=== PATIENT | female | born 1985 | race Two or more races ===

== ENCOUNTER 2024-10-25 20:34 | Emergency (ER) | payer MEDICAID, SELFPAY ==
[2024-10-25 20:53] VITALS: BP 137/89; PULSE 91; RESP 18; TEMP 37.1; O2SAT 97; BMI 31.4
--- NOTE | 2024-10-25 21:02 | EDNOTE_ITS ---
<Statement entered by Yuliya Garza MD - 10/26/24 22:04> As co-signing physician, I was present and available for consult prn. I concur with the plan and care as documented by the midlevel provider. ED Headache RME/HPI General Chief Complaint: Headache Stated Complaint: HEADACHE Time Seen by Provider: 10/25/24 20:58 Source: patient Arrival date/time: 10/25/24 20:34 39-year-old female with past medical history hypertension, diabetes, history of seizures presents emergency department complaining of headache that started 2 hours ago. Mode of arrival: ambulatory Limitations: no limitations Related Data Home Medications ?Medication ?Instructions ?Recorded ?Confirmed amoxicillin 500 mg capsule 500 mg PO Q8H 02/24/23 02/24/23 hydroxyzine HCl 50 mg tablet 50 mg PO HS 02/24/23 02/24/23 ibuprofen 800 mg tablet 800 mg PO Q8H PRN Pain 02/24/23 02/24/23 benazepril 20 mg tablet 20 mg PO QDAY 10/15/23 10/15/23 lisinopril 10 mg tablet 10 mg PO QDAY 10/15/23 10/15/23 levetiracetam 500 mg tablet 500 mg PO QDAY 05/09/24 05/09/24 (Keppra) semaglutide 1 mg/dose (4 mg/3 mL) mg subcut 06/12/24 subcutaneous pen injector (Ozempic) Previous Rx's ?Medication ?Instructions ?Recorded acetaminophen 500 mg capsule 1,000 mg (2 x 500 mg) PO Q6H PRN 06/05/23 fever or pain #30 caps ibuprofen 800 mg tablet 800 mg PO TID PRN pain #30 tabs 06/05/23 naproxen 500 mg tablet 500 mg PO BID PRN pain #30 tabs 08/12/23 ibuprofen 800 mg tablet 800 mg PO TID PRN pain #30 tabs 09/21/23 tamsulosin 0.4 mg capsule (Flomax) 0.4 mg PO QDAY #10 caps 09/21/23 ibuprofen 600 mg tablet 600 mg PO TID PRN pain #30 tabs 10/30/23 albuterol sulfate 90 mcg/actuation 2 puff inhalation Q6H PRN 03/10/24 aerosol inhaler (Ventolin HFA) shortness of breath or wheezing #8.5 grams amoxicillin 875 mg-potassium 1 tab PO BID #14 tabs 03/10/24 clavulanate 125 mg tablet levetiracetam 500 mg tablet 500 mg PO BID For seizure #60 tabs 05/09/24 (Keppra) calcium carbonate 1,000 1 tab PO QID PRN indigestion #20 06/23/24 mg-simethicone 60 mg chewable tabs tablet (Maalox Advanced) famotidine 20 mg tablet 20 mg PO BID #30 tabs 06/23/24 ondansetron 4 mg disintegrating 4 mg PO Q8H #14 tabs 06/23/24 tablet Allergies Allergy/AdvReac Type Severity Reaction Status Date / Time iron dextran complex Allergy Severe anaphylaxic Verified 08/01/24 18:31 iron Allergy THROAT Verified 08/01/24 18:31 SWELLING Review of Systems Review of Systems Systems Reviewed: All systems reviewed, normal except as documented Constitutional Constitutional: Reports system reviewed and no additional complaints, except as documented, Denies body ache(s), Denies chills, Denies fever(s) and Reports headache(s) Eyes Eyes: Reports system reviewed and no additional complaints, except as documented and Denies change in vision ENT Ears, Nose, Mouth, and Throat: Reports system reviewed and no additional complaints, except as documented, Denies disequilibrium, Denies dizziness, Reports headache(s), Denies sore throat and Denies vertigo Cardiovascular Cardiovascular: Reports system reviewed and no additional complaints, except as documented, Denies chest pain and Denies dyspnea Respiratory Respiratory: Reports system reviewed and no additional complaints, except as documented, Denies chest congestion, Denies cough and Denies dyspnea Gastrointestinal Gastrointestinal: Reports system reviewed and no additional complaints, except as documented, Denies abdominal pain, Denies nausea and Denies vomiting Musculoskeletal Musculoskeletal: Reports system reviewed and no additional complaints, except as documented, Denies abnormal gait and Denies arthralgias Integumentary/Breasts Skin/Breast: Reports system reviewed and no additional complaints, except as documented, Denies erythema, Denies rash and Denies wounds Neurologic Neurologic: Reports system reviewed and no additional complaints, except as documented, Denies abnormal gait, Denies disequilibrium, Denies dizziness, Reports headache(s) and Denies vertigo Past Medical History Past Medical History NEUROLOGIC: Positive Seizures; Negative Neurological Disorders CARDIAC: Positive Edema and Hypertension; Negative Cardiac Disorders or Congestive Heart Failure RESPIRATORY: Negative Chronic Obstructive Pulmonary Disease (COPD) or Asthma GASTROINTESTINAL: Negative Gastrointestinal Disorders GENITOURINARY: Negative Genitourinary Disorders or Renal Disease REPRODUCTIVE: Positive Previous Pregnancies MUSCULOSKELETAL: Negative Musculoskeletal Disorders or Fractures ENDOCRINE: Positive Diabetes Mellitus Type 2; Negative Diabetes Mellitus Type 1 HEMATOLOGIC: Positive Anemia PSYCHO/SOCIAL: Positive Depression OTHER HISTORY: Positive Hospitalization; Negative Autoimmune Disease, Blood Transfusions, Blood Transfusion Reaction or Anesthesia Reactions Family History FAMILY HISTORY: Negative Family Psychiatric Problems, Family Respiratory Disorders, Family Cardiac Disorders, Family Gastrointestinal Problems, Family Cancer, Family Surgery or Family Anesthesia Reaction Surgical History SURGICAL: Positive Section Social History SMOKING STATUS: Never smoker SECOND HAND EXPOSURE: No SUBSTANCE USE: does not use ED Exam General Limitations: Present no limitations General appearance: Present alert and in no apparent distress Head Head exam: Present atraumatic Eye Eye exam: Present normal appearance, PERRL and EOMI ENT ENT exam: Present normal exam, normal oropharynx and mucous membranes moist Neck Neck exam: Present normal inspection, full ROM and trachea midline Chest Chest inspection: Present normal inspection and symmetric chest wall rise Respiratory Respiratory exam: Present normal lung sounds bilaterally Cardiovascular Cardiovascular exam: Present regular rate, normal rhythm and normal heart sounds Abdominal Exam Abdominal exam: Present soft and normal bowel sounds Extremities Exam Extremities exam: Present normal inspection and full ROM Back Exam Back exam: Present normal inspection and full ROM Neurological Exam Neurological exam: Present alert, oriented X3 and CN II-XII intact Psychiatric Psychiatric exam: Present normal affect and normal mood Skin Skin exam: Present warm, dry, intact and normal color Course Quality Measures none Orders Category Date Time Status Acetaminophen Tab [Tylenol ES Tab] Med 10/25/24 21:02 Discontinued 1,000 mg PO X1 ONE DiphenhydrAMINE [Benadryl] Med 10/25/24 21:02 Discontinued 25 mg PO X1 ONE Metoclopramide Inj [Reglan Inj] Med 10/25/24 21:02 Discontinued 10 mg IM X1 ONE Vital Signs Vital signs: Vital Signs Temperature 98.8 F 10/25/24 20:53 Pulse Rate 91 10/25/24 20:53 Respiratory Rate 18 10/25/24 20:53 Blood Pressure 137/89 H 10/25/24 20:53 Pulse Oximetry (%) 97 10/25/24 20:53 Oxygen Delivery Method Room Air 10/25/24 20:53 Headache MDM Narrative MDM Narrative:: 39-year-old female with past medical history hypertension, diabetes, history of seizures presents emergency department complaining of headache that started 2 hours ago. Patient eloped before final disposition. Patient data External records reviewed:: [facility] previous records Clinical information provided by:: patient Social determinants that could affect healthcare access:: none Patient has the following chronic illnesses:: See chart How is presenting disease/condition affected by chronic disease/condition?: exacerbated by Evaluation data The following diagnostics were reviewed and interpreted by me:: radiology exam(s) Lab and/or radiology exams considered but not ordered:: Ordered Interpretation Summary: Interpreted by me Medications / Prescriptions Medications or Prescriptions considered but not ordered:: Ordered Medication administrations:: Medication Administration History Discontinued Medications Acetaminophen (Acetaminophen 500 Mg Tablet) 1,000 mg PO X1 ONE Stop: 10/25/24 21:03 Last Admin: 10/25/24 21:21 Dose: 1,000 mg Documented By: Diphenhydramine HCl (Diphenhydramine 25 Mg Capsule) 25 mg PO X1 ONE Stop: 10/25/24 21:03 Last Admin: 10/25/24 21:21 Dose: 25 mg Documented By: Metoclopramide HCl (Metoclopramide Inj 5 Mg/Ml Vial 2 Ml) 10 mg IM X1 ONE; Protocol Stop: 10/25/24 21:03 Last Admin: 10/25/24 21:21 Dose: 10 mg Documented By: Given Consultations Consultation(s) initiated? (list below): No Diagnosis Differential diagnosis headache: migraine, tension headache, subarachnoid hemorrhage, headache, meningitis, sinusitis and postconcussion syndrome Most likely diagnosis given after review of the tests above:: Eloped before final disposition Admission Indicated Admission indicated?: not indicated Admission Request Was there a request for admission?: No Disposition Plan Disposition Plan: Discharge Discharge Attestation Discharge Attestation: The patient and all family members were given an opportunity to ask questions and understood the discharge instructions. Discharge instructions specifically effects, indications for sooner follow up or return to the emergency department, and the expected course of current diagnosis. Patient condition: Stable Discharge Plan Plan Patient Disposition: Elopement Prescriptions/Referrals Prescriptions/Med Rec: No Action amoxicillin 500 mg Capsule 500 mg PO Q8H ibuprofen 800 mg Tablet 800 mg PO Q8H PRN (Reason: Pain) hydroxyzine HCl 50 mg Tablet 50 mg PO HS ibuprofen 800 mg tablet 800 mg PO TID PRN (Reason: pain) Qty: 30 0RF acetaminophen 500 mg capsule 1,000 mg PO Q6H PRN (Reason: fever or pain) Qty: 30 0RF levetiracetam [Keppra] 500 mg tablet 500 mg PO QDAY levetiracetam [Keppra] 500 mg tablet 500 mg PO BID Qty: 60 0RF Ozempic 1 mg/dose (4 mg/3 mL) pen injector SUBCUT Patient Comments: INJECT 1MG SUBCUTANEOUS ONCE A WEEK FOR 4 WEEKS famotidine 20 mg tablet 20 mg PO BID Qty: 30 1RF ondansetron 4 mg tablet,disintegrating 4 mg PO Q8H Qty: 14 0RF Maalox Advanced 1,000-60 mg tablet,chewable 1 tab PO QID PRN (Reason: indigestion) Qty: 20 0RF naproxen 500 mg tablet 500 mg PO BID PRN (Reason: pain) Qty: 30 0RF tamsulosin [Flomax] 0.4 mg capsule 0.4 mg PO QDAY Qty: 10 0RF ibuprofen 800 mg tablet 800 mg PO TID PRN (Reason: pain) Qty: 30 0RF lisinopril 10 mg Tablet 10 mg PO QDAY benazepril 20 mg Tablet 20 mg PO QDAY ibuprofen 600 mg tablet 600 mg PO TID PRN (Reason: pain) Qty: 30 0RF albuterol sulfate [Ventolin HFA] 90 mcg/actuation HFA aerosol inhaler 2 puff inhalation Q6H PRN (Reason: shortness of breath or wheezing) Qty: 8.5 0RF amoxicillin-pot clavulanate 875-125 mg tablet 1 tab PO BID Qty: 14 0RF Referrals: Aileen Bhakta PA-C [Primary Care Provider] - In 1 week Problem List Clinical Impression: Eloped from emergency department Patient/Caregiver Discharge Instructions Print Language: Gabonese NEAL/JAYSON Supervising Physician NEAL/COMPUTER GAME [employer] Supervising Physician: Dr. Garza
[2024-10-25] MEDS: DiphenhydrAMINE 25 MG CAPSULE PO (21:21)
[2024-10-25] MEDS: METOCLOPRAMIDE INJ 5 MG/ML VIAL 2 ML 10 MG IM (21:21)
[2024-10-25] MEDS: ACETAMINOPHEN 500 MG TABLET 1000 MG PO (21:21)
--- NOTE | 2024-10-25 22:30 | PC.NURSE ---
NO ANSWER AT ER LOBBY OR OUTSIDE ER.
--- NOTE | 2024-10-25 22:53 | PC.NURSE ---
NO ANSWER AT ER LOBBY OR OUTSIDE ER TO DO CT.
--- NOTE | 2024-10-25 23:03 | PC.NURSE ---
NO ANSWER AT ER LOBBY OR OUTSIDE ER.
== END 2024-10-25 23:06 | disposition left against medical advice (07) ==
PROVIDERS: Emergency Provider Emergency Medicine; PCP Specialist
DX: R51.9 Headache, unspecified (principal); Z53.29 Procedure and treatment not carried out because of patient's decision for other reasons
CPT/HCPCS: 99281; J2765; A9270

== ENCOUNTER 2024-12-21 18:00 | Emergency (ER) | payer MEDICAID, SELFPAY ==
--- NOTE | 2024-12-21 18:22 | PD.EDRME ---
Rapid Medical Screening Exam RME Arrival date/time: 12/21/24 18:00 39-year-old female with past medical history of seizure disorder and diabetes presents emergency department complaining of headache and reports I feel like going to have a seizure. Chief Complaint: Headache Time Seen by Provider: 12/21/24 18:04 Vital signs reviewed by provider: Yes
--- NOTE | 2024-12-21 18:24 | XR_ITS ---
Examination: CT brain head without contrast. 2-D sagittal coronal reconstructions Date and time of exam:June 20, 2025 1854 hours Comparison May 25, 2024 INDICATIONS: Onset right-sided head pain and blurred vision today CTDI: vol (mGy):46.3 DLP: (mGycm):864 Technique: Multiple CT axial sections of the brain have been obtained, 5 mm slice thickness. Contrast has not been administered. 2-D sagittal, coronal reconstructions have been obtained Low dose protocols were performed. One or more of the following dose reduction techniques were used; automated exposure control, adjustment of the mA and/or KV according to patient size, use of iterative reconstruction technique. Findings: No significant ventricular enlargement. Intra-axial or extra-axial hemorrhage density is not seen. No mass effect or midline shift Basal cisterns are not remarkable. Fourth ventricle is midline. Cranial vault intact. Impression: Negative for acute hemorrhage, mass effect or midline shift. Advise clinical correlation and follow-up accordingly
[2024-12-21 18:25] VITALS: BP 163/99; PULSE 96; RESP 20; TEMP 36.8; O2SAT 100
[2024-12-21] MEDS: LORazepam 2 MG/ML VIAL 1 MG IM (18:49)
[2024-12-21] MEDS: ACETAMINOPHEN 500 MG TABLET 1000 MG PO (18:49)
[2024-12-21 19:08] LABS: Basophils # (Auto) 0.1 Thou/mm3 (0.0-0.2); Basophils % (Auto) 1 % (0-2.5); Eosinophils # (Auto) 0.3 Thou/mm3 (0.0-0.5); Eosinophils % (Auto) 3 % (0-10); Hemoglobin 13.6 g/dL (12.0-16.0); Immature Granulocytes % (Auto) 0 % (0-0); Immature Granulocytes Auto 0.02 Thou/mm3 (0.00-0.00); Lymphocytes # (Auto) 2.6 Thou/mm3 (1.0-4.8); Lymphocytes % (Auto) 35 % (10-50); Mean Corpuscular HGB Conc 33.2 g/dl (31.0-37.0); Mean Corpuscular Hemoglobin 25.4 pg (25.0-35.0); Mean Corpuscular Volume 77 fL (80-100); Monocytes # (Auto) 0.5 Thou/mm3 (0.0-0.8); Monocytes % (Auto) 6 % (0-12); Neutrophils # (Auto) 3.9 Thou/mm3 (1.8-7.7); Neutrophils % (Auto) 54 % (37-80); Nucleated Red Blood Cell % 0 /100 WBC (0); Platelet Count 222 Thou/mm3 (140-440); RDW Standard Deviation 37.1 fL (36.4-46.3); Red Blood Count 5.36 Miln/mm3 (4.00-5.20); White Blood Count 7.3 Thou/mm3 (3.6-11.0)
[2024-12-21 19:23] LABS: HCG,Qualitative Serum Negative
[2024-12-21 19:25] LABS: Alanine Aminotransferase 21 U/L (10-49); Albumin, Serum 4.7 gm/dL (3.5-5.0); Albumin/Globulin Ratio 1.5 (1.2-2.2); Alkaline Phosphatase 91 U/L (46-116); Anion Gap 7 (7-16); Aspartate Amino Transferase 19 U/L (0-34); BUN/Creatinine Ratio 21 Ratio (12-20); Bilirubin,Total 0.3 mg/dL (0.3-1.2); Blood Urea Nitrogen 15 mg/dL (9-23); Calcium 9.9 mg/dL (8.3-10.6); Calcium (Corrected) 9.9 mg/dL (8.5-10.1); Carbon Dioxide 26.9 mMol/L (20.0-31.0); Chloride 102 mMol/L (98-107); Creatinine (Component) 0.7 mg/dL (0.6-1.3); Globulin 3.2 gm/dL (2.3-3.5); Glucose 175 mg/dL (74-106); Osmolality,Calculated 276 (275-295); Potassium 3.5 mMol/L (3.4-5.1); Sodium 136 mMol/L (136-145); Total Protein 7.9 gm/dL (5.7-8.2); eGFR > 60 See Note
[2024-12-21 20:02] LABS: Bacteria,Urine Rare; Bilirubin,Urine Negative (Negative); Blood,Urine 2+ (Negative); Budding Yeast,Urine Present; Collection Type, Urine Clean Catch; Color,Urine Lt-Yellow (Lt Yel-Yel); Glucose, Urine 4+ (Negative); Ketones,Urine Negative (Negative); Leukocyte Esterase,Urine Positive (Negative); Nitrite,Urine Negative (Negative); PH,Urine 6.5 (5.0-7.0); Protein,Urine Trace (Neg - Trace); RBC,Urine 14 /hpf (0-3); Squamous Epithelial Cell,Urine 10 /hpf (0-5); Urobilinogen,Urine Negative mg/dL (0.0-1.0); WBC,Urine 82 /hpf (0-5)
[2024-12-21 20:17] LABS: Clarity,Urine Hazy (Clear/Hazy); Culture Indicated,Urine Yes; Sperm,Urine Present
[2024-12-21 20:48] LABS: Amphetamine/Methamp Scrn,U Negative (Negative); Barbiturate Screen,Urine Negative (Negative); Benzodiazepines Screen,Urine Negative (Negative); Benzoylecgonine Screen, Ur Negative (Negative); Fentanyl Screen,Urine Negative (Negative); Opiate Screen,Urine Negative (Negative); THC Screen,Urine Negative (Negative)
--- NOTE | 2024-12-21 20:52 | PD.EDHA ---
ED Headache RME/HPI General Chief Complaint: Headache Stated Complaint: HEADACHE Time Seen by Provider: 12/21/24 18:04 Source: patient Arrival date/time: 12/21/24 18:00 39-year-old female with past medical history of seizure disorder and diabetes presents emergency department complaining of headache and reports I feel like going to have a seizure. Patient reports has been compliant with her medication. Patient reports takes Keppra. Patient reports also suffers with anxiety and has had similar symptoms before. Patient denies any fever, chills, cough, vomiting, or any other associated symptom. Mode of arrival: ambulatory Limitations: no limitations RME / HPI RME / HPI Narrative: 12/21/24 18:00 39-year-old female with past medical history of seizure disorder and diabetes presents emergency department complaining of headache and reports I feel like going to have a seizure. Related Data Home Medications ?Medication ?Instructions ?Recorded ?Confirmed amoxicillin 500 mg capsule 500 mg PO Q8H 02/24/23 02/24/23 hydroxyzine HCl 50 mg tablet 50 mg PO HS 02/24/23 02/24/23 ibuprofen 800 mg tablet 800 mg PO Q8H PRN Pain 02/24/23 02/24/23 benazepril 20 mg tablet 20 mg PO QDAY 10/15/23 10/15/23 lisinopril 10 mg tablet 10 mg PO QDAY 10/15/23 10/15/23 levetiracetam 500 mg tablet 500 mg PO QDAY 05/09/24 05/09/24 (Keppra) semaglutide 1 mg/dose (4 mg/3 mL) mg subcut 06/12/24 subcutaneous pen injector (Ozempic) Previous Rx's ?Medication ?Instructions ?Recorded acetaminophen 500 mg capsule 1,000 mg (2 x 500 mg) PO Q6H PRN 06/05/23 fever or pain #30 caps ibuprofen 800 mg tablet 800 mg PO TID PRN pain #30 tabs 06/05/23 naproxen 500 mg tablet 500 mg PO BID PRN pain #30 tabs 08/12/23 ibuprofen 800 mg tablet 800 mg PO TID PRN pain #30 tabs 09/21/23 tamsulosin 0.4 mg capsule (Flomax) 0.4 mg PO QDAY #10 caps 09/21/23 ibuprofen 600 mg tablet 600 mg PO TID PRN pain #30 tabs 10/30/23 albuterol sulfate 90 mcg/actuation 2 puff inhalation Q6H PRN 03/10/24 aerosol inhaler (Ventolin HFA) shortness of breath or wheezing #8.5 grams amoxicillin 875 mg-potassium 1 tab PO BID #14 tabs 03/10/24 clavulanate 125 mg tablet levetiracetam 500 mg tablet 500 mg PO BID For seizure #60 tabs 05/09/24 (Keppra) calcium carbonate 1,000 1 tab PO QID PRN indigestion #20 06/23/24 mg-simethicone 60 mg chewable tabs tablet (Maalox Advanced) famotidine 20 mg tablet 20 mg PO BID #30 tabs 06/23/24 ondansetron 4 mg disintegrating 4 mg PO Q8H #14 tabs 06/23/24 tablet acetaminophen 500 mg capsule 500 mg PO Q6H PRN pain #30 caps 12/21/24 cephalexin 500 mg capsule 500 mg PO BID 5 days #10 caps 12/21/24 Allergies Allergy/AdvReac Type Severity Reaction Status Date / Time iron dextran complex Allergy Severe anaphylaxic Verified 08/01/24 18:31 iron Allergy THROAT Verified 08/01/24 18:31 SWELLING Review of Systems Review of Systems Systems Reviewed: All systems reviewed, normal except as documented Constitutional Constitutional: Reports system reviewed and no additional complaints, except as documented, Denies body ache(s), Denies chills, Denies fever(s) and Reports headache(s) Eyes Eyes: Reports system reviewed and no additional complaints, except as documented and Denies change in vision ENT Ears, Nose, Mouth, and Throat: Reports system reviewed and no additional complaints, except as documented, Denies disequilibrium, Denies dizziness, Reports headache(s), Denies sore throat and Denies vertigo Cardiovascular Cardiovascular: Reports system reviewed and no additional complaints, except as documented, Denies chest pain and Denies dyspnea Respiratory Respiratory: Reports system reviewed and no additional complaints, except as documented, Denies chest congestion, Denies cough and Denies dyspnea Gastrointestinal Gastrointestinal: Reports system reviewed and no additional complaints, except as documented, Denies abdominal pain, Denies nausea and Denies vomiting Musculoskeletal Musculoskeletal: Reports system reviewed and no additional complaints, except as documented, Denies abnormal gait and Denies arthralgias Integumentary/Breasts Skin/Breast: Reports system reviewed and no additional complaints, except as documented, Denies erythema, Denies rash and Denies wounds Neurologic Neurologic: Reports system reviewed and no additional complaints, except as documented, Denies abnormal gait, Denies disequilibrium, Denies dizziness, Reports headache(s) and Denies vertigo Past Medical History Past Medical History NEUROLOGIC: Positive Seizures; Negative Neurological Disorders CARDIAC: Positive Edema and Hypertension; Negative Cardiac Disorders or Congestive Heart Failure RESPIRATORY: Negative Chronic Obstructive Pulmonary Disease (COPD) or Asthma GASTROINTESTINAL: Negative Gastrointestinal Disorders GENITOURINARY: Negative Genitourinary Disorders or Renal Disease REPRODUCTIVE: Positive Previous Pregnancies MUSCULOSKELETAL: Negative Musculoskeletal Disorders or Fractures ENDOCRINE: Positive Diabetes Mellitus Type 2; Negative Diabetes Mellitus Type 1 HEMATOLOGIC: Positive Anemia PSYCHO/SOCIAL: Positive Depression OTHER HISTORY: Positive Hospitalization; Negative Autoimmune Disease, Blood Transfusions, Blood Transfusion Reaction or Anesthesia Reactions Family History FAMILY HISTORY: Negative Family Psychiatric Problems, Family Respiratory Disorders, Family Cardiac Disorders, Family Gastrointestinal Problems, Family Cancer, Family Surgery or Family Anesthesia Reaction Surgical History SURGICAL: Positive Section Social History SMOKING STATUS: Never smoker SECOND HAND EXPOSURE: No SUBSTANCE USE: does not use ED Exam General Limitations: Present no limitations General appearance: Present alert and in no apparent distress Head Head exam: Present atraumatic Eye Eye exam: Present normal appearance, PERRL and EOMI ENT ENT exam: Present normal exam, normal oropharynx and mucous membranes moist Neck Neck exam: Present normal inspection, full ROM and trachea midline Chest Chest inspection: Present normal inspection and symmetric chest wall rise Respiratory Respiratory exam: Present normal lung sounds bilaterally Cardiovascular Cardiovascular exam: Present regular rate, normal rhythm and normal heart sounds Abdominal Exam Abdominal exam: Present soft and normal bowel sounds Extremities Exam Extremities exam: Present normal inspection and full ROM Back Exam Back exam: Present normal inspection and full ROM Neurological Exam Neurological exam: Present alert, oriented X3 and CN II-XII intact Psychiatric Psychiatric exam: Present normal affect and normal mood Skin Skin exam: Present warm, dry, intact and normal color Course Quality Measures none Orders Category Date Time Status EKG (ED ONLY) *Do not use* NOW Care 12/21/24 18:[address] head/brain wo con Stat Exams 12/21/24 18:24 Completed EKG (ED Only) Stat Exams 12/21/24 18:24 Ordered CBC Stat Lab 12/21/24 18:41 Completed CMP [Comprehensive Metabolic Panel] Stat Lab 12/21/24 18:41 Completed Drug Screen,Urine Stat Lab 12/21/24 19:10 Completed HCG,Qualitative Serum Stat Lab 12/21/24 18:41 Completed Urinalysis, C/S if Indicated Stat Lab 12/21/24 19:10 Completed Urine Culture Stat Lab 12/21/24 19:10 Received Acetaminophen Tab [Tylenol ES Tab] Med 12/21/24 18:27 Discontinued 1,000 mg PO X1 ONE Fluconazole [Diflucan] Med 12/21/24 20:55 Discontinued 150 mg PO X1 ONE LORazepam [Ativan Inj] Med 12/21/24 18:25 Discontinued 1 mg IM X1 ONE Vital Signs Vital signs: Vital Signs Temperature 98.2 F 12/21/24 18: Pulse Rate 96 12/21/24 18:25 Respiratory Rate 20 12/21/24 18:25 Blood Pressure 163/99 H 12/21/24 18:25 Pulse Oximetry (%) 100 12/21/24 18:25 Oxygen Delivery Method Room Air 12/21/24 18:25 100% room air within normal limits Procedures -ED EKG Interpretation #1: Date of EK12/21/24 Time of EK:35 Rate: 98 Interpretation: Interpreted by me EKG Impression: Normal sinus rhythm, No acute ST-T changes, No ectopy, No ischemic changes and Normal QRS Headache MDM Narrative MDM Narrative:: 39-year-old female with past medical history of seizure disorder and diabetes presents emergency department complaining of headache and reports I feel like going to have a seizure. Patient reports has been compliant with her medication. Patient reports takes Keppra. Patient reports also suffers with anxiety and has had similar symptoms before. Patient denies any fever, chills, cough, vomiting, or any other associated symptom. CBC unremarkable for any leukocytosis. CMP was also unremarkable for any elevated LFTs or gross electrolyte abnormalities. EKG sinus rhythm. CT head unremarkable. Urinalysis positive for leukocytes, WBCs, and RBCs we will treat UTI and also given x 1 dose of fluconazole for yeast in urine. Patient was given 1 mg Ativan IM and Tylenol which significantly improved her symptoms. Patient GCS of 15 with steady gait and answering questions appropriately. Patient likely suffering from anxiety attack. Instructed to continue taking her antiseizure medication and have a close follow-up with her primary care provider and return to emergency department for any worsening symptoms or as needed. Patient data External records reviewed:: [facility] previous records Clinical information provided by:: patient and family Social determinants that could affect healthcare access:: none Patient has the following chronic illnesses:: See chart How is presenting disease/condition affected by chronic disease/condition?: exacerbated by Evaluation data The following diagnostics were reviewed and interpreted by me:: lab results, radiology exam(s) and EKG tracing(s) Lab and/or radiology exams considered but not ordered:: Order Interpretation Summary: Interpreted by me Medications / Prescriptions Medications or Prescriptions considered but not ordered:: Ordered Medication administrations:: Medication Administration History Discontinued Medications Acetaminophen (Acetaminophen 500 Mg Tablet) 1,000 mg PO X1 ONE Stop: 12/21/24 18:28 Last Admin: 12/21/24 18:49 Dose: 1,000 mg Documented By: MICHAEL Fluconazole (Fluconazole 150 Mg Tablet) 150 mg PO X1 ONE Stop: 12/21/24 20:56 Last Admin: 12/21/24 21:08 Dose: 150 mg Documented By: MICHAEL Lorazepam (Lorazepam 2 Mg/Ml Vial) 1 mg IM X1 ONE Stop: 12/21/24 18:26 Last Admin: 12/21/24 18:49 Dose: 1 mg Documented By: MICHAEL Given Consultations Consultation(s) initiated? (list below): No Diagnosis Differential diagnosis headache: migraine, tension headache, subarachnoid hemorrhage, headache, meningitis, sinusitis and postconcussion syndrome Most likely diagnosis given after review of the tests above:: UTI Admission Indicated Admission indicated?: not indicated Admission Request Was there a request for admission?: No Disposition Plan Disposition Plan: Discharge Discharge Attestation Discharge Attestation: The patient and all family members were given an opportunity to ask questions and understood the discharge instructions. Discharge instructions specifically effects, indications for sooner follow up or return to the emergency department, and the expected course of current diagnosis. Patient condition: Stable Discharge Plan Plan Patient Disposition: HOME (Self Care) Disposition Comment: Stable Prescriptions/Referrals Prescriptions/Med Rec: New acetaminophen 500 mg capsule 500 mg PO Q6H PRN (Reason: pain) Qty: 30 0RF cephalexin 500 mg capsule 500 mg PO BID 5 Days Qty: 10 0RF No Action amoxicillin 500 mg Capsule 500 mg PO Q8H ibuprofen 800 mg Tablet 800 mg PO Q8H PRN (Reason: Pain) hydroxyzine HCl 50 mg Tablet 50 mg PO HS ibuprofen 800 mg tablet 800 mg PO TID PRN (Reason: pain) Qty: 30 0RF acetaminophen 500 mg capsule 1,000 mg PO Q6H PRN (Reason: fever or pain) Qty: 30 0RF levetiracetam [Keppra] 500 mg tablet 500 mg PO QDAY levetiracetam [Keppra] 500 mg tablet 500 mg PO BID Qty: 60 0RF Ozempic 1 mg/dose (4 mg/3 mL) pen injector SUBCUT Patient Comments: INJECT 1MG SUBCUTANEOUS ONCE A WEEK FOR 4 WEEKS famotidine 20 mg tablet 20 mg PO BID Qty: 30 1RF ondansetron 4 mg tablet,disintegrating 4 mg PO Q8H Qty: 14 0RF Maalox Advanced 1,000-60 mg tablet,chewable 1 tab PO QID PRN (Reason: indigestion) Qty: 20 0RF naproxen 500 mg tablet 500 mg PO BID PRN (Reason: pain) Qty: 30 0RF tamsulosin [Flomax] 0.4 mg capsule 0.4 mg PO QDAY Qty: 10 0RF ibuprofen 800 mg tablet 800 mg PO TID PRN (Reason: pain) Qty: 30 0RF lisinopril 10 mg Tablet 10 mg PO QDAY benazepril 20 mg Tablet 20 mg PO QDAY ibuprofen 600 mg tablet 600 mg PO TID PRN (Reason: pain) Qty: 30 0RF albuterol sulfate [Ventolin HFA] 90 mcg/actuation HFA aerosol inhaler 2 puff inhalation Q6H PRN (Reason: shortness of breath or wheezing) Qty: 8.5 0RF amoxicillin-pot clavulanate 875-125 mg tablet 1 tab PO BID Qty: 14 0RF Referrals: Aileen Bhakta PA-C [Primary Care Provider] - In 1 week Problem List Clinical Impression: UTI (urinary tract infection) Patient/Caregiver Discharge Instructions Discharge Activity: activity as tolerated Education Materials: ED CYSTITIS Female Adult Additional Instructions: Drink plenty of fluids and complaining of rest. Take antibiotic as prescribed. Follow-up with primary care provider in 2 to 3 days. Continue take your seizure medication as prescribed. Return to emergency department for any worsening symptoms or as needed. Print Language: Chilean Stand Alone Forms: Kristine Award Info., Patient Portal Info Letter PA/PAINT SPRAYING MACHINE OPERATOR HELPER Supervising Physician PA/PAINT SPRAYING MACHINE OPERATOR HELPER Supervising Physician: Dr. Palacios
[2024-12-21] MEDS: FLUCONAZOLE 150 MG TABLET PO (21:08)
== END 2024-12-21 21:11 | disposition home or self-care (01) ==
PROVIDERS: Emergency Provider Emergency Medicine; PCP Specialist
DX: N39.0 Urinary tract infection, site not specified (principal); R51.9 Headache, unspecified; H53.8 Other visual disturbances
CPT/HCPCS: 36415; 70450; 80053; 80307; 81001; 84703; 85025; 87086; 96372; 99284; J2060; A9270

== ENCOUNTER 2025-01-19 16:27 | Emergency (ER) | payer MEDICAID, SELFPAY ==
[2025-01-19 16:28] VITALS: BMI 28.1
[2025-01-19 16:49] VITALS: BP 134/85; PULSE 111; RESP 18; TEMP 37.2; O2SAT 96; BMI 29.7
--- NOTE | 2025-01-19 16:56 | EKG_ITS ---
[facility] Test Date: 2025-01-19 Pat Name: HOMA HENRY Department: Room: - Gender: Female Supervisor Body Assembly: : 1985 Requested By: Jan Cantor Order Number: [id number] Reading MD: Jan Cantor Measurements Intervals [place] Rate: 96 P: 44 WA: 139 QRS: 65 QRSD: 83 T: 55 QT: 299 QTc: 379 Interpretive Statements SINUS RHYTHM Compared to ECG 05/25/2024 01:41:12 Sinus tachycardia no longer present /store/S0/[id number]
--- NOTE | 2025-01-19 16:56 | XR_ITS ---
Examination: PA lateral chest 2 views Technique: Upright PA lateral chest 2 views Exam date and time: January 19, 2025 1727 hrs. Indications: Chest pain coughing today Findings: Normal heart size. Lungs are clear. The osseous structures are intact Impression: No active disease
--- NOTE | 2025-01-19 17:00 | PD.EDURI ---
Upper Respiratory Inf. RME/HPI General Chief Complaint: Flu Like Symptoms Stated Complaint: Cough, fever, PAUL, CP Time Seen by Provider: 01/19/25 16:55 Arrival date/time: 01/19/25 16:27 RME / HPI RME / HPI Narrative: 39-year-old female presents with complaint of cough, headache, chest pain, and subjective fevers at home. Patient reports family members at home with similar symptoms. States she has been taking Tylenol at home and also an antibiotic that was prescribed by her PCP. Related Data Home Medications ?Medication ?Instructions ?Recorded ?Confirmed amoxicillin 500 mg capsule 500 mg PO Q8H 02/24/23 02/24/23 hydroxyzine HCl 50 mg tablet 50 mg PO HS 02/24/23 02/24/23 ibuprofen 800 mg tablet 800 mg PO Q8H PRN Pain 02/24/23 02/24/23 benazepril 20 mg tablet 20 mg PO QDAY 10/15/23 10/15/23 lisinopril 10 mg tablet 10 mg PO QDAY 10/15/23 10/15/23 levetiracetam 500 mg tablet 500 mg PO QDAY 05/09/24 05/09/24 (Keppra) semaglutide 1 mg/dose (4 mg/3 mL) mg subcut 06/12/24 subcutaneous pen injector (Ozempic) Previous Rx's ?Medication ?Instructions ?Recorded acetaminophen 500 mg capsule 1,000 mg (2 x 500 mg) PO Q6H PRN 06/05/23 fever or pain #30 caps ibuprofen 800 mg tablet 800 mg PO TID PRN pain #30 tabs 06/05/23 naproxen 500 mg tablet 500 mg PO BID PRN pain #30 tabs 08/12/23 ibuprofen 800 mg tablet 800 mg PO TID PRN pain #30 tabs 09/21/23 tamsulosin 0.4 mg capsule (Flomax) 0.4 mg PO QDAY #10 caps 09/21/23 ibuprofen 600 mg tablet 600 mg PO TID PRN pain #30 tabs 10/30/23 albuterol sulfate 90 mcg/actuation 2 puff inhalation Q6H PRN 03/10/24 aerosol inhaler (Ventolin HFA) shortness of breath or wheezing #8.5 grams amoxicillin 875 mg-potassium 1 tab PO BID #14 tabs 03/10/24 clavulanate 125 mg tablet levetiracetam 500 mg tablet 500 mg PO BID For seizure #60 tabs 05/09/24 (Keppra) calcium carbonate 1,000 1 tab PO QID PRN indigestion #20 06/23/24 mg-simethicone 60 mg chewable tabs tablet (Maalox Advanced) famotidine 20 mg tablet 20 mg PO BID #30 tabs 06/23/24 ondansetron 4 mg disintegrating 4 mg PO Q8H #14 tabs 06/23/24 tablet acetaminophen 500 mg capsule 500 mg PO Q6H PRN pain #30 caps 12/21/24 ibuprofen 600 mg tablet 600 mg PO TID PRN pain #30 tabs 01/19/25 Allergies Allergy/AdvReac Type Severity Reaction Status Date / Time iron dextran complex Allergy Severe anaphylaxic Verified 08/01/24 18:31 iron Allergy THROAT Verified 08/01/24 18:31 SWELLING Review of Systems Review of Systems Systems Reviewed: All systems reviewed, normal except as documented ED Exam Narrative Physical exam: Constitutional: no acute distress, age appropriate, non-toxic Eyes: PERRL, conjunctivae w/o pallor, EOMI HENT: normocephalic, atraumatic. Oral mucosa moist Respiratory Effort: no stridor, effort normal, no retractions Breath sounds: Clear bilaterally; No rales, No rhonchi, No wheezing Cardiovascular: regular rhythm, S1 and S2 normal, no murmur Abdominal: soft; non-distended, non-tender Musculoskeletal: no deformities, no swelling, no LE edema Skin: warm, dry; No rash Neurology: alert, oriented X 4. Normal gait. Moves all extremities spontaneously. Psychology: cooperative, normal mood Course Quality Measures none Orders Category Date Time Status Bedside Influenza A&B Antigen Test NOW Care 01/19/25 16:57 Completed EKG (ED ONLY) *Do not use* NOW Care 01/19/25 16:56 Completed EKG (ED Only) Stat Exams 01/19/25 16:56 Draft XR chest 2V Stat Exams 01/19/25 16:56 Taken CBC Stat Lab 01/19/25 17:14 Completed CMP [Comprehensive Metabolic Panel] Stat Lab 01/19/25 17:14 Results HCG,Qualitative Serum Stat Lab 01/19/25 17:14 Results Troponin I Stat Lab 01/19/25 17:14 Results Ketorolac Inj [Toradol Inj] Med 01/19/25 16:56 Discontinued 30 mg IM X1 ONE Vital Signs Vital signs: Vital Signs Temperature 99.0 F 01/19/25 16:49 Pulse Rate 111 H 01/19/25 16:49 Respiratory Rate 18 01/19/25 16:49 Blood Pressure 134/85 H 01/19/25 16:49 Pulse Oximetry (%) 96 01/19/25 16:49 Oxygen Delivery Method Room Air 01/19/25 16:49 Upper Respiratory Infection MDM Narrative MDM Narrative:: 39-year-old female presents with flulike symptoms and chest pain. Differential diagnoses include influenza, pneumonia, costochondritis, ACS, PE EKG without any ischemic changes and troponin within normal limits. Highly doubt ACS. Considered PE, but no shortness of breath or dyspnea on exertion, no hemoptysis, no recent travel or immobilization, no unilateral leg swelling. Likely costochondritis secondary to viral URI. Chest x-ray shows no evidence of pneumonia. Counseled to follow-up with primary care in 2 to 3 days. Strict return to ED precautions given. Patient data External records reviewed:: [facility] previous records Clinical information provided by:: patient Social determinants that could affect healthcare access:: none Patient has the following chronic illnesses:: None How is presenting disease/condition affected by chronic disease/condition?: no chronic disease Evaluation data The following diagnostics were reviewed and interpreted by me:: lab results, radiology exam(s) and EKG tracing(s) Lab and/or radiology exams considered but not ordered:: Considered CT angio, but not indicated, see MDM for details Interpretation Summary: EKG medically necessary in the evaluation of chest pain and interpreted by me and ED physician at the time of patient evaluation. Normal sinus rhythm with a rate of 96. RI and QT intervals within normal limits. No ST/T changes. No STEMI. Interpretation: Normal EKG Chest x-ray: No infiltrate, effusion, or pneumothorax. My independent interpretation CBC shows no leukocytosis or anemia CMP shows no electrolyte abnormalities, no NABILA. LFTs less than 3x upper limit of normal hCG negative. Troponin within normal limits Medications / Prescriptions Medications or Prescriptions considered but not ordered:: N/A Medication administrations:: Medication Administration History Discontinued Medications Ketorolac Tromethamine (Ketorolac Inj 30 Mg/Ml Vial) 30 mg IM X1 ONE Stop: 01/19/25 16:57 Last Admin: 01/19/25 17:01 Dose: 30 mg Documented By: See above Consultations Consultation(s) initiated? (list below): No Diagnosis Upper Respiratory Differential Diagnosis: other (See MDM) Most likely diagnosis given after review of the tests above:: Viral URI, costochondritis Admission Indicated Admission indicated?: not indicated Admission Request Was there a request for admission?: No Disposition Plan Disposition Plan: Discharge Discharge Attestation Discharge Attestation: The patient and all family members were given an opportunity to ask questions and understood the discharge instructions. Discharge instructions specifically effects, indications for sooner follow up or return to the emergency department, and the expected course of current diagnosis. Patient condition: Stable Discharge Plan Plan Patient Disposition: HOME (Self Care) Prescriptions/Referrals Prescriptions/Med Rec: New ibuprofen 600 mg tablet 600 mg PO TID PRN (Reason: pain) Qty: 30 0RF No Action amoxicillin 500 mg Capsule 500 mg PO Q8H ibuprofen 800 mg Tablet 800 mg PO Q8H PRN (Reason: Pain) hydroxyzine HCl 50 mg Tablet 50 mg PO HS ibuprofen 800 mg tablet 800 mg PO TID PRN (Reason: pain) Qty: 30 0RF acetaminophen 500 mg capsule 1,000 mg PO Q6H PRN (Reason: fever or pain) Qty: 30 0RF levetiracetam [Keppra] 500 mg tablet 500 mg PO QDAY levetiracetam [Keppra] 500 mg tablet 500 mg PO BID Qty: 60 0RF Ozempic 1 mg/dose (4 mg/3 mL) pen injector SUBCUT Patient Comments: INJECT 1MG SUBCUTANEOUS ONCE A WEEK FOR 4 WEEKS famotidine 20 mg tablet 20 mg PO BID Qty: 30 1RF ondansetron 4 mg tablet,disintegrating 4 mg PO Q8H Qty: 14 0RF Maalox Advanced 1,000-60 mg tablet,chewable 1 tab PO QID PRN (Reason: indigestion) Qty: 20 0RF naproxen 500 mg tablet 500 mg PO BID PRN (Reason: pain) Qty: 30 0RF tamsulosin [Flomax] 0.4 mg capsule 0.4 mg PO QDAY Qty: 10 0RF ibuprofen 800 mg tablet 800 mg PO TID PRN (Reason: pain) Qty: 30 0RF lisinopril 10 mg Tablet 10 mg PO QDAY benazepril 20 mg Tablet 20 mg PO QDAY ibuprofen 600 mg tablet 600 mg PO TID PRN (Reason: pain) Qty: 30 0RF albuterol sulfate [Ventolin HFA] 90 mcg/actuation HFA aerosol inhaler 2 puff inhalation Q6H PRN (Reason: shortness of breath or wheezing) Qty: 8.5 0RF amoxicillin-pot clavulanate 875-125 mg tablet 1 tab PO BID Qty: 14 0RF acetaminophen 500 mg capsule 500 mg PO Q6H PRN (Reason: pain) Qty: 30 0RF Referrals: Aileen Bhakta PA-C [Primary Care Provider] - In 1 week Problem List Clinical Impression: Upper respiratory infection, viral, Acute costochondritis Patient/Caregiver Discharge Instructions Education Materials: ED Chest Wall Pain, Costochondritis Additional Instructions: Your chest x-ray was normal, your labs and EKG were very reassuring. Rest and drink plenty of fluids, take medication as prescribed. Follow-up with primary care in 2 to 3 days. Return to the ED for new or worsening symptoms. Print Language: Syriac Stand Alone Forms: Kristine Award Info., Patient Portal Info Letter
[2025-01-19] MEDS: KETOROLAC INJ 30 MG/ML VIAL IM (17:01)
[2025-01-19 17:30] LABS: Basophils % (Auto) 1 % (0-2.5); Eosinophils # (Auto) 0.3 Thou/mm3 (0.0-0.5); Eosinophils % (Auto) 5 % (0-10); Hematocrit 38.3 % (36.0-46.0); Hemoglobin 12.6 g/dL (12.0-16.0); Immature Granulocytes % (Auto) 1 % (0-0); Immature Granulocytes Auto 0.03 Thou/mm3 (0.00-0.00); Lymphocytes # (Auto) 1.8 Thou/mm3 (1.0-4.8); Lymphocytes % (Auto) 30 % (10-50); Mean Corpuscular HGB Conc 32.9 g/dl (31.0-37.0); Mean Corpuscular Hemoglobin 25.2 pg (25.0-35.0); Mean Corpuscular Volume 77 fL (80-100); Monocytes # (Auto) 0.8 Thou/mm3 (0.0-0.8); Monocytes % (Auto) 13 % (0-12); Neutrophils # (Auto) 3.1 Thou/mm3 (1.8-7.7); Neutrophils % (Auto) 51 % (37-80); Nucleated Red Blood Cell % 0 /100 WBC (0); Platelet Count 203 Thou/mm3 (140-440); White Blood Count 6.1 Thou/mm3 (3.6-11.0)
[2025-01-19 17:54] LABS: HCG,Qualitative Serum Negative
[2025-01-19 18:24] LABS: Alanine Aminotransferase 19 U/L (10-49); Albumin/Globulin Ratio 1.3 (1.2-2.2); Anion Gap 10 (7-16); Aspartate Amino Transferase 21 U/L (0-34); BUN/Creatinine Ratio 14 Ratio (12-20); Bilirubin,Total 0.3 mg/dL (0.3-1.2); Blood Urea Nitrogen 13 mg/dL (9-23); Calcium 8.9 mg/dL (8.3-10.6); Calcium (Corrected) 8.9 mg/dL (8.5-10.1); Carbon Dioxide 21.9 mMol/L (20.0-31.0); Chloride 104 mMol/L (98-107); Creatinine (Component) 0.9 mg/dL (0.6-1.3); Estimated Creatinine Clearance 85.9 mL/min (>60); Globulin 3.2 gm/dL (2.3-3.5); Glucose 200 mg/dL (74-106); Osmolality,Calculated 278 (275-295); Potassium 4.3 mMol/L (3.4-5.1); Sodium 136 mMol/L (136-145); Total Protein 7.2 gm/dL (5.7-8.2); Troponin I < 0.002 ng/mL (0.0-0.045); eGFR > 60 See Note
[2025-01-19 19:04] LABS: Alkaline Phosphatase 75 U/L (46-116)
== END 2025-01-19 18:45 | disposition home or self-care (01) ==
PROVIDERS: Physician Assistant; Emergency Provider Emergency Medicine; PCP Specialist
DX: J06.9 Acute upper respiratory infection, unspecified (principal); B97.89 Other viral agents as the cause of diseases classified elsewhere; M94.0 Chondrocostal junction syndrome [Tietze]
CPT/HCPCS: 36415; 71046; 80053; 84484; 84703; 85025; 87400; 93005; 96372; 99283; J1885

== ENCOUNTER 2025-03-03 22:39 | Emergency (ER) | payer MEDICAID, SELFPAY ==
--- NOTE | 2025-03-03 22:41 | EKG_ITS ---
[facility] Test Date: 2025-03-03 Pat Name: HOMA HENRY Department: Room: - Gender: Female Internet Marketing Assistant: : 1985 Requested By: ED Temporary Provider Order Number: [id number] Reading MD: ED Temporary Provider Measurements Intervals [place] Rate: 101 P: 51 HI: 156 QRS: 62 QRSD: 80 T: 59 QT: 307 QTc: 399 Interpretive Statements SINUS TACHYCARDIA ABNORMAL RHYTHM ECG Compared to ECG 01/19/2025 17:11:08 Sinus rhythm no longer present /store/S0/[id number]
[2025-03-03 22:45] VITALS: BP 169/103; PULSE 102; RESP 18; TEMP 36.8; O2SAT 98
--- NOTE | 2025-03-03 23:06 | PD.EDANX ---
ED Anxiety RME/HPI General Chief Complaint: Anxiety Stated Complaint: ANXIETY ATTACK Time Seen by Provider: 03/03/25 22:42 Arrival date/time: 03/03/25 22:39 RME / HPI RME / HPI narrative: This section includes all my notes and documentations, including HPI, PE, and ED course. Danyn Suazo MD HPI: 39 y/o female with H/o Hypertension, iron allergy, Type II DM, Edema, Seizure, and Anxiety presents to ED with boyfriend c/o chest pain since yesterday, over 24 hours ago. Patient reports current chest pain to be a 7/10. Patient admits to taking anxiety medication as needed, as well as medication for hypertension, but does not recall medication names. Boyfriend states patient itches at her arms when she feels anxious. No modifying factors reported. She also reports severe headache. No other concerns or complaints expressed at this time. ROS: All negative except as documented in HPI. Physical Exam: General: Alert and oriented. Gyrating, scratching, and severely anxious. Eyes: Conjunctivae and lids clear. ENT: No nasal congestion. Neck: Supple. Heart: RRR. Lungs: No respiratory distress. Good air movement. No rhonchi, wheezing, rales. Abdomen: Soft and nontender. Legs: No clubbing, cyanosis, edema. Skin: Warm and dry. Neuro: Alert and oriented X 3. Cranial nerves II to XII grossly normal. No peripheral motor deficits. I reviewed all diagnostic test results. My interpretation of the EKG is sinus rhythm with no acute ST?T changes. My review of the head CT report is no acute findings. Blood tests and urine tests remarkable for UTI. At this point, diagnoses include chest pain and headache and UTI. Treatment here included Xanax, Prednisone, Tylenol, and Ibuprofen. Significant improvement noted. Recommend outpatient treatment. Based on my best medical judgment, made decision no further evaluation or treatment indicated at this time. Patient understands and agrees to the discharge instructions customized and printed, see below. Discharge instructions from Dr. Suazo: 1. After extensive evaluation, there is no life-threatening condition. Such as heart attack or stroke or brain tumor. 2. Your symptoms may be due to underlying stress or anxiety or nerves. This is fairly common. 3. Take Xanax as needed. Whether this helps or not will be valuable information to your private doctors. 4. For your urinary tract infection, take cefdinir as prescribed. For good hydration, increase oral fluid and maintain clear urine. If dark or yellow, increase oral fluid. 5. See a private doctor on 03/05/2025 for recheck and further care. Ask to review all test results and official radiology reports, to make sure you receive all necessary follow-ups and monitoring. To make sure there is no serious underlying heart condition, ask to help you get more tests for your heart that cannot be done here in the ER. Such as Holter Monitor (cardiac monitoring at home from a day to even a month), heart stress test (on treadmill or with medication), echocardiogram (imaging of your heart structures), heart catherization (checking for blockages in your heart arteries), and a referral to see a Digital Associate. 6. Seek immediate medical care with worsening or with any concerns. Danny Suazo MD Related Data Home Medications ?Medication ?Instructions ?Recorded ?Confirmed amoxicillin 500 mg capsule 500 mg PO Q8H 02/24/23 02/24/23 hydroxyzine HCl 50 mg tablet 50 mg PO HS 02/24/23 02/24/23 ibuprofen 800 mg tablet 800 mg PO Q8H PRN Pain 02/24/23 02/24/23 benazepril 20 mg tablet 20 mg PO QDAY 10/15/23 10/15/23 lisinopril 10 mg tablet 10 mg PO QDAY 10/15/23 10/15/23 levetiracetam 500 mg tablet 500 mg PO QDAY 05/09/24 05/09/24 (Keppra) semaglutide 1 mg/dose (4 mg/3 mL) mg subcut 06/12/24 subcutaneous pen injector (Ozempic) Previous Rx's ?Medication ?Instructions ?Recorded acetaminophen 500 mg capsule 1,000 mg (2 x 500 mg) PO Q6H PRN 06/05/23 fever or pain #30 caps ibuprofen 800 mg tablet 800 mg PO TID PRN pain #30 tabs 06/05/23 naproxen 500 mg tablet 500 mg PO BID PRN pain #30 tabs 08/12/23 ibuprofen 800 mg tablet 800 mg PO TID PRN pain #30 tabs 09/21/23 tamsulosin 0.4 mg capsule (Flomax) 0.4 mg PO QDAY #10 caps 09/21/23 ibuprofen 600 mg tablet 600 mg PO TID PRN pain #30 tabs 10/30/23 albuterol sulfate 90 mcg/actuation 2 puff inhalation Q6H PRN 03/10/24 aerosol inhaler (Ventolin HFA) shortness of breath or wheezing #8.5 grams amoxicillin 875 mg-potassium 1 tab PO BID #14 tabs 03/10/24 clavulanate 125 mg tablet levetiracetam 500 mg tablet 500 mg PO BID For seizure #60 tabs 05/09/24 (Keppra) calcium carbonate 1,000 1 tab PO QID PRN indigestion #20 06/23/24 mg-simethicone 60 mg chewable tabs tablet (Maalox Advanced) famotidine 20 mg tablet 20 mg PO BID #30 tabs 06/23/24 ondansetron 4 mg disintegrating 4 mg PO Q8H #14 tabs 06/23/24 tablet acetaminophen 500 mg capsule 500 mg PO Q6H PRN pain #30 caps 12/21/24 ibuprofen 600 mg tablet 600 mg PO TID PRN pain #30 tabs 01/19/25 alprazolam 0.5 mg tablet (Xanax) 0.5 mg PO BID PRN anxiety #10 tabs 03/04/25 cefdinir 300 mg capsule 300 mg PO BID #14 caps 03/04/25 ondansetron 4 mg disintegrating 4 mg PO TID PRN nausea and 03/04/25 tablet vomiting 30 days #10 tabs Allergies Allergy/AdvReac Type Severity Reaction Status Date / Time iron dextran complex Allergy Severe anaphylaxic Verified 08/01/24 18:31 iron Allergy THROAT Verified 08/01/24 18:31 SWELLING Review of Systems Review of Systems Systems Reviewed: All systems reviewed, normal except as documented Narrative Review of Systems: Refer to [facility] Past Medical History Past Medical History NEUROLOGIC: Positive Seizures CARDIAC: Positive Edema and Hypertension REPRODUCTIVE: Positive Previous Pregnancies ENDOCRINE: Positive Diabetes Mellitus Type 2 HEMATOLOGIC: Positive Anemia PSYCHO/SOCIAL: Positive Depression OTHER HISTORY: Positive Hospitalization Surgical History SURGICAL: Positive Section Social History SMOKING STATUS: Never smoker SECOND HAND EXPOSURE: No SUBSTANCE USE: does not use ED Exam Narrative Physical exam: Refer to [facility] Course Course Course Narrative: Chest x-ray performed in ED for further evaluation of chest pain. Quality Measures none Orders Category Date Time Status EKG (ED ONLY) *Do not use* NOW Care 03/03/25 22:41 Active EKG (ED Only) Stat Exams 03/03/25 22:41 Draft Vital Signs Vital signs: Vital Signs Temperature 98.3 F 03/03/25 22:45 Pulse Rate 102 H 03/03/25 22:45 Respiratory Rate 18 03/03/25 22:45 Blood Pressure 169/103 H 03/03/25 22:45 Pulse Oximetry (%) 98 03/03/25 22:45 Oxygen Delivery Method Room Air 03/03/25 22:45 Anxiety MDM Narrative MDM Narrative: I, Shannon Walton, attest that this documentation has been prepared under the direction and in the presence of Dr. Danny Suazo, and the documentation accurately describes the services performed. Patient data External records reviewed:: [facility] previous records ( Reviewed from most recent visit on 01/19/25 for Acute costochondritis) Clinical information provided by:: patient and other (specify) (boyfriend) Social determinants that could affect healthcare access:: none Patient has the following chronic illnesses:: Asthma, Hypertension, Type II DM, Seizure, and Edema. How is presenting disease/condition affected by chronic disease/condition?: exacerbated by Evaluation data The following diagnostics were reviewed and interpreted by me:: lab results, radiology exam(s) and EKG tracing(s) Lab and/or radiology exams considered but not ordered:: None Interpretation Summary: Chest pain due to anxiety and UTI Medications / Prescriptions Medications or Prescriptions considered but not ordered:: None Medication administrations:: Xanax, Prednisone, Tylenol, Ibuprofen Consultations Consultation(s) initiated? (list below): No Diagnosis Differential diagnosis anxiety: hyperventilation, panic disorder, acute anxiety and other (Costochondritis, [place], CVA, brain tumor) Most likely diagnosis given after review of the tests above:: chest pain due to anxiety and UTI Admission Indicated Admission indicated?: not indicated Explain why admission is indicated or not indicated:: With significant improvement, there was no indication for admission. Admission Request Was there a request for admission?: No Disposition Plan Disposition Plan: Discharge Discharge Attestation Discharge Attestation: The patient and all family members were given an opportunity to ask questions and understood the discharge instructions. Discharge instructions specifically effects, indications for sooner follow up or return to the emergency department, and the expected course of current diagnosis. Patient condition: Stable Discharge Plan Plan Patient Disposition: HOME (Self Care) Prescriptions/Referrals Prescriptions/Med Rec: New alprazolam [Xanax] 0.5 mg tablet 0.5 mg PO BID PRN (Reason: anxiety) Qty: 10 0RF ondansetron 4 mg tablet,disintegrating 4 mg PO TID PRN (Reason: nausea and vomiting) 30 Days Qty: 10 0RF cefdinir 300 mg capsule 300 mg PO BID Qty: 14 0RF No Action amoxicillin 500 mg Capsule 500 mg PO Q8H ibuprofen 800 mg Tablet 800 mg PO Q8H PRN (Reason: Pain) hydroxyzine HCl 50 mg Tablet 50 mg PO HS ibuprofen 800 mg tablet 800 mg PO TID PRN (Reason: pain) Qty: 30 0RF acetaminophen 500 mg capsule 1,000 mg PO Q6H PRN (Reason: fever or pain) Qty: 30 0RF levetiracetam [Keppra] 500 mg tablet 500 mg PO QDAY levetiracetam [Keppra] 500 mg tablet 500 mg PO BID Qty: 60 0RF Ozempic 1 mg/dose (4 mg/3 mL) pen injector SUBCUT Patient Comments: INJECT 1MG SUBCUTANEOUS ONCE A WEEK FOR 4 WEEKS famotidine 20 mg tablet 20 mg PO BID Qty: 30 1RF ondansetron 4 mg tablet,disintegrating 4 mg PO Q8H Qty: 14 0RF Maalox Advanced 1,000-60 mg tablet,chewable 1 tab PO QID PRN (Reason: indigestion) Qty: 20 0RF ibuprofen 600 mg tablet 600 mg PO TID PRN (Reason: pain) Qty: 30 0RF naproxen 500 mg tablet 500 mg PO BID PRN (Reason: pain) Qty: 30 0RF tamsulosin [Flomax] 0.4 mg capsule 0.4 mg PO QDAY Qty: 10 0RF ibuprofen 800 mg tablet 800 mg PO TID PRN (Reason: pain) Qty: 30 0RF lisinopril 10 mg Tablet 10 mg PO QDAY benazepril 20 mg Tablet 20 mg PO QDAY ibuprofen 600 mg tablet 600 mg PO TID PRN (Reason: pain) Qty: 30 0RF albuterol sulfate [Ventolin HFA] 90 mcg/actuation HFA aerosol inhaler 2 puff inhalation Q6H PRN (Reason: shortness of breath or wheezing) Qty: 8.5 0RF amoxicillin-pot clavulanate 875-125 mg tablet 1 tab PO BID Qty: 14 0RF acetaminophen 500 mg capsule 500 mg PO Q6H PRN (Reason: pain) Qty: 30 0RF Referrals: Temporary Provider,ED [Physician] - In 1 week Problem List Clinical Impression: Chest pain Patient/Caregiver Discharge Instructions Discharge Activity: activity as tolerated Education Materials: ED Anxiety Reaction, ED Panic Attack, ED CYSTITIS Female Adult Additional Instructions: Discharge instructions from Dr. Suazo: 1. After extensive evaluation, there is no life-threatening condition.? Such as heart attack or stroke or brain tumor. 2. Your symptoms may be due to underlying stress or anxiety or nerves.? This is fairly common. 3. Take Xanax as needed.? Whether this helps or not will be valuable information to your private doctors. 4. For your urinary tract infection, take cefdinir as prescribed. For good hydration, increase oral fluid and maintain clear urine. If dark or yellow, increase oral fluid. 5. See a private doctor on 03/05/2025 for recheck and further care. Ask to review all test results and official radiology reports, to make sure you receive all necessary follow-ups and monitoring. To make sure there is no serious underlying heart condition, ask to help you get more tests for your heart that cannot be done here in the ER.? Such as Holter Monitor (cardiac monitoring at home from a day to even a month), heart stress test (on treadmill or with medication), echocardiogram (imaging of your heart structures), heart catherization (checking for blockages in your heart arteries), and a referral to see a Digital Associate. 6. Seek immediate medical care with worsening or with any concerns.?? Instrucciones de cheo del Dr. Suazo: 1. Tras janice evaluaci?n exhaustiva, no se observa ninguna afecci?n potencialmente mortal, mena un ataque card?aco, un derrame cerebral o un tumor cerebral. 2. Tim s?ntomas pueden deberse a estr?s, ansiedad o nerviosismo subyacentes. [place] es bastante com?n. 3. [place] Xanax seg?n sea necesario. Si esto le ayuda o no, ser? janice informaci?n valiosa para tim m?dicos. 4. Para garibay infecci?n del tracto urinario, tome cefdinir seg?n lo prescrito. Para janice buena hidrataci?n, aumente la ingesta de l?quidos y mantenga la orina neda. Si la orina es oscura o amarilla, aumente la ingesta de l?quidos. 5. Consulte con un m?dico el 09/28/2025 para janice nueva revisi?n y atenci?n adicional. Solicite la revisi?n de todos los resultados de las pruebas y los informes radiol?gicos oficiales para asegurarse de recibir todos los seguimientos y la monitorizaci?n necesarios. Para asegurarse de que no haya janice afecci?n card?marzena subyacente grave, solicite ayuda para realizar m?s pruebas card?acas que no se pueden realizar en urgencias. Mena un monitor Holter (monitoreo card?aco en casa desde un d?a hasta un mes), janice prueba de esfuerzo card?aco (en cinta o con medicaci?n), un ecocardiograma (im?genes de las estructuras del coraz?n), un cateterismo card?aco (para detectar obstrucciones en las arterias del coraz?n) y janice derivaci?n a un cardi?logo. 6. [place]que atenci?n m?dica inmediata si garibay condici?n empeora o tiene alguna inquietud. Print Language: Uzbek Stand Alone Forms: Kristine Award Info., Patient Portal Info Letter
[2025-03-03] MEDS: predniSONE 20 MG TABLET 60 MG PO (23:36)
[2025-03-03] MEDS: ALPRazoLAM 0.25 MG TABLET 1 MG PO (23:37)
[2025-03-03 23:48] LABS: Basophils # (Auto) 0.1 Thou/mm3 (0.0-0.2); Basophils % (Auto) 1 % (0-2.5); Eosinophils # (Auto) 0.4 Thou/mm3 (0.0-0.5); Eosinophils % (Auto) 6 % (0-10); Hematocrit 39.2 % (36.0-46.0); Hemoglobin 13.1 g/dL (12.0-16.0); Immature Granulocytes % (Auto) 0 % (0-0); Immature Granulocytes Auto 0.02 Thou/mm3 (0.00-0.00); Lymphocytes # (Auto) 2.8 Thou/mm3 (1.0-4.8); Lymphocytes % (Auto) 39 % (10-50); Mean Corpuscular HGB Conc 33.4 g/dl (31.0-37.0); Mean Corpuscular Hemoglobin 25.5 pg (25.0-35.0); Mean Corpuscular Volume 76 fL (80-100); Monocytes # (Auto) 0.5 Thou/mm3 (0.0-0.8); Monocytes % (Auto) 7 % (0-12); Neutrophils # (Auto) 3.3 Thou/mm3 (1.8-7.7); Neutrophils % (Auto) 47 % (37-80); Nucleated Red Blood Cell % 0 /100 WBC (0); Platelet Count 227 Thou/mm3 (140-440); RDW Standard Deviation 36.6 fL (36.4-46.3); Red Blood Count 5.13 Miln/mm3 (4.00-5.20); White Blood Count 7.1 Thou/mm3 (3.6-11.0)
[2025-03-04 00:11] LABS: Alanine Aminotransferase 34 U/L (10-49); Albumin, Serum 4.3 gm/dL (3.5-5.0); Albumin/Globulin Ratio 1.4 (1.2-2.2); Alkaline Phosphatase 95 U/L (46-116); Anion Gap 8 (7-16); Aspartate Amino Transferase 28 U/L (0-34); BUN/Creatinine Ratio 16 Ratio (12-20); Bilirubin,Total 0.4 mg/dL (0.3-1.2); Blood Urea Nitrogen 11 mg/dL (9-23); Calcium 9.6 mg/dL (8.3-10.6); Calcium (Corrected) 9.6 mg/dL (8.5-10.1); Carbon Dioxide 25.6 mMol/L (20.0-31.0); Chloride 103 mMol/L (98-107); Creatinine (Component) 0.7 mg/dL (0.6-1.3); Free T4 (Free Thyroxine) 1.12 ng/dL (0.89-1.76); Globulin 3.1 gm/dL (2.3-3.5); Glucose 308 mg/dL (74-106); Magnesium 1.7 mg/dL (1.6-2.6); Osmolality,Calculated 285 (275-295); Potassium 4.4 mMol/L (3.4-5.1); Sodium 137 mMol/L (136-145); Thyroid Stimulating Hormone 6.71 uIU/mL (0.55-4.78); Total Protein 7.4 gm/dL (5.7-8.2); Troponin I < 0.002 ng/mL (0.0-0.045); eGFR > 60 See Note
--- NOTE | 2025-03-04 00:51 | XR_ITS ---
Examination: CT brain head without contrast. 2-D sagittal coronal reconstructions Date and time of exam:March 04, 2025 0219 hrs. Indications: Onset headaches anxiety attack today CTDI: vol (mGy):47.9 DLP: (mGycm):895 Technique: Multiple CT axial sections of the brain have been obtained, 5 mm slice thickness. Contrast has not been administered. 2-D sagittal, coronal reconstructions have been obtained Low dose protocols were performed. One or more of the following dose reduction techniques were used; automated exposure control, adjustment of the mA and/or KV according to patient size, use of iterative reconstruction technique. Findings: No significant ventricular enlargement. Intra-axial or extra-axial hemorrhage density is not seen. No mass effect or midline shift Basal cisterns are not remarkable. Fourth ventricle is midline. Cranial vault intact. Impression: Negative for acute hemorrhage, mass effect or midline shift
[2025-03-04] MEDS: ACETAMINOPHEN 325 MG TABLET 1000 MG PO (01:09)
[2025-03-04] MEDS: IBUPROFEN TAB 400 MG TABLET 800 MG PO (01:10)
[2025-03-04 01:25] LABS: HCG,Qualitative Serum Negative
[2025-03-04 02:09] LABS: Collection Type, Urine Clean Catch; RBC,Urine 0 /hpf (0-3)
[2025-03-04 02:44] LABS: Bacteria,Urine 2+; Bilirubin,Urine Negative (Negative); Blood,Urine Negative (Negative); Clarity,Urine Turbid (Clear/Hazy); Color,Urine Colorless (Lt Yel-Yel); Culture Indicated,Urine Yes; Glucose, Urine 4+ (Negative); Ketones,Urine Negative (Negative); Leukocyte Esterase,Urine Positive (Negative); Nitrite,Urine Negative (Negative); PH,Urine 6.5 (5.0-7.0); Protein,Urine Negative (Neg - Trace); Specific Gravity,Urine 1.006 (1.001-1.035); Squamous Epithelial Cell,Urine 8 /hpf (0-5); Urobilinogen,Urine Negative mg/dL (0.0-1.0); WBC,Urine 45 /hpf (0-5)
[2025-03-04 02:47] LABS: HCG Qualitative,Urine Negative
--- NOTE | 2025-03-04 03:02 | PRELIM_ITS ---
CT scan of the head without intravenous contrast (axial sections with sagittal and coronal reformats). March 04, 2025 0219 hours Clinical History: Headache No prior study is available for comparison. Findings: No evidence of intracranial hemorrhage, mass effect or midline shift. The ventricles and CSF spaces are unremarkable. The calvarium is unremarkable. The mastoid air cells and the visualized paranasal sinuses are clear. Impression: No evidence of intracranial hemorrhage, mass effect or midline shift. Report Electronically Signed By: Pascual Flores 03/04/2025 3:01:26 AM [EST]
[2025-03-04 03:29] VITALS: BP 142/86; PULSE 80; RESP 16; TEMP 37; O2SAT 98
== END 2025-03-04 03:31 | disposition home or self-care (01) ==
PROVIDERS: Emergency Provider Emergency Medicine; PCP Specialist
DX: R07.9 Chest pain, unspecified (principal); F41.9 Anxiety disorder, unspecified; N39.0 Urinary tract infection, site not specified; R51.9 Headache, unspecified; I10 Essential (primary) hypertension; E11.9 Type 2 diabetes mellitus without complications; J45.909 Unspecified asthma, uncomplicated
CPT/HCPCS: 36415; 70450; 80053; 80307; 81001; 81025; 83735; 84439; 84443; 84484; 84703; 85025; 87086; 87186; 93005; 99284; J7512; A9270

== ENCOUNTER → 2025-04-03 | Outpatient (CLI) | payer OTHER, SELFPAY ==
--- NOTE | 2025-04-03 13:00 | XR_ITS ---
MRI shoulder, left, without contrast. Date and time: Posterior left shoulder pain after falling one year ago Technique: Multiple axial, sagittal and coronal sections of the shoulder have been obtained. Siemens high-resolution 1.5 Jade MRI scanner is utilized. Axial fat-suppressed sections, TR 2350, TE 18 T2-weighted coronal fat-saturated images, TR 3500, TE 7100 T1-weighted coronal images, TR 500, TE 15 T2-weighted sagittal fat-saturated images, TR 3500, TE 57 T1-weighted sagittal sections, TR 504, TE 13. Findings: Supraspinatus tendon insertion is intact. Infraspinatus tendon insertion is intact. Subscapularis insertion is intact Subscapularis bursa is not seen. Long head of the biceps is in the bicipital groove. No definite tear of the biceps superior labral anchor is seen. Retraction of the musculotendinous junction of the rotator cuff is not seen . Tendinosis pattern is mild. Distance between the acromium and humeral head is 5.3 mm Atrophy of the supraspinatus muscle is mild . Atrophy of the infraspinatus muscle is not seen. Sagittal sections demonstrate a horizontal acromion. Acromioclavicular joint demonstrates mild osteoarthritis . Osacromiale is not identified. Fraying and irregularity anterior superior labral margins. Bony glenoid fossa on the sagittal sections does not demonstrate osseous defect. Occult fracture or area of avascular necrosis is not seen. Acromioclavicular joint separation is not visible. Defect in the posterolateral margin of the humeral head is not seen Impression: Rotator cuff intact Fraying and irregularity anterior superior labral margins
--- NOTE | 2025-04-03 13:30 | XR_ITS ---
Examination: MRI lumbar spine without contrast Date and time of exam: April 03, 2025 1343 hours INDICATIONS: Low back pain radiating down the left leg 1 year after falling within the lower back Technique: Multiple MRI axial and sagittal sections lumbar spine. Sagittal T2-weighted images, TR 3500, TE 118 T1 weighted transverse sections, TR 688 T8.5, T2-weighted sagittal sections T1 weighted sagittal sections TR 621, TE 30 T2 axial sections, TR 4, 190, TE 84. Findings: Satisfactory alignment lumbar vertebral bodies No lumbar fracture Disc desiccation lower 3 lumbar levels No spondylolisthesis L5-S1 4 mm central lumbar disc bulge L4-L5 5 mm central lumbar disc bulge contiguous with the right and left L5 nerve roots More cephalad levels unremarkable IMPRESSION: L5-S1 4 mm of lumbar disc bulge L4-L5 5 mm lumbar disc bulge contiguous with the right and left L5 nerve roots
== END | disposition home or self-care (01) ==
PROVIDERS: Referring Provider Orthopaedic Surgery; Visit Provider Orthopaedic Surgery
DX: M25.812 Other specified joint disorders, left shoulder (principal); M51.370 Other intervertebral disc degeneration, lumbosacral region with discogenic back pain only; M51.360 Other intervertebral disc degeneration, lumbar region with discogenic back pain only
CPT/HCPCS: 72148; 73221

== ENCOUNTER → 2025-04-03 | Outpatient (CLI) | payer OTHER, SELFPAY | END | disposition home or self-care (01) | LOC: SMRI 13:01 | DX: Z53.8 Procedure and treatment not carried out for other reasons (principal) ==

== ENCOUNTER 2025-04-11 22:48 | Emergency (ER) | payer MEDICAID, SELFPAY ==
[2025-04-11 22:54] VITALS: BP 180/112; PULSE 84; RESP 17; TEMP 36.9; O2SAT 100
--- NOTE | 2025-04-11 23:02 | PD.EDAMS ---
Altered Mental Status RME/HPI General Chief Complaint: Chest Pain Stated Complaint: AMS Time Seen by Provider: 04/11/25 22:58 Arrival date/time: 04/11/25 22:48 RME / HPI RME / HPI narrative: Dr. Palacios?s Main ED Evaluation: 39yo female with a history of seizures, DM, HTN BIBA from home presents to the ED for a chief complaint of AMS. Per EMS, patient's son called 911 due to having a possible seizure. Patient states she started having a headache and mid chest pain at 1400 today. Patient states she got into a verbal altercation with her son facundo and had a seizure after. She states this usually happens when she gets stressed out. Patient denies any falls or injuries. Patient denies any fever, chills, neck pain, abdominal pain, N/V or any other associated symptoms. LMP was 03/30/25. Related Data Home Medications ?Medication ?Instructions ?Recorded ?Confirmed amoxicillin 500 mg capsule 500 mg PO Q8H 02/24/23 02/24/23 hydroxyzine HCl 50 mg tablet 50 mg PO HS 02/24/23 02/24/23 ibuprofen 800 mg tablet 800 mg PO Q8H PRN Pain 02/24/23 02/24/23 benazepril 20 mg tablet 20 mg PO QDAY 10/15/23 10/15/23 lisinopril 10 mg tablet 10 mg PO QDAY 10/15/23 10/15/23 levetiracetam 500 mg tablet 500 mg PO QDAY 05/09/24 05/09/24 (Keppra) semaglutide 1 mg/dose (4 mg/3 mL) mg subcut 06/12/24 subcutaneous pen injector (Ozempic) Previous Rx's ?Medication ?Instructions ?Recorded acetaminophen 500 mg capsule 1,000 mg (2 x 500 mg) PO Q6H PRN 06/05/23 fever or pain #30 caps ibuprofen 800 mg tablet 800 mg PO TID PRN pain #30 tabs 06/05/23 naproxen 500 mg tablet 500 mg PO BID PRN pain #30 tabs 08/12/23 ibuprofen 800 mg tablet 800 mg PO TID PRN pain #30 tabs 09/21/23 tamsulosin 0.4 mg capsule (Flomax) 0.4 mg PO QDAY #10 caps 09/21/23 ibuprofen 600 mg tablet 600 mg PO TID PRN pain #30 tabs 10/30/23 albuterol sulfate 90 mcg/actuation 2 puff inhalation Q6H PRN 03/10/24 aerosol inhaler (Ventolin HFA) shortness of breath or wheezing #8.5 grams amoxicillin 875 mg-potassium 1 tab PO BID #14 tabs 03/10/24 clavulanate 125 mg tablet levetiracetam 500 mg tablet 500 mg PO BID For seizure #60 tabs 05/09/24 (Keppra) calcium carbonate 1,000 1 tab PO QID PRN indigestion #20 06/23/24 mg-simethicone 60 mg chewable tabs tablet (Maalox Advanced) famotidine 20 mg tablet 20 mg PO BID #30 tabs 06/23/24 ondansetron 4 mg disintegrating 4 mg PO Q8H #14 tabs 06/23/24 tablet acetaminophen 500 mg capsule 500 mg PO Q6H PRN pain #30 caps 12/21/24 ibuprofen 600 mg tablet 600 mg PO TID PRN pain #30 tabs 01/19/25 alprazolam 0.5 mg tablet (Xanax) 0.5 mg PO BID PRN anxiety #10 tabs 03/04/25 cefdinir 300 mg capsule 300 mg PO BID #14 caps 03/04/25 Allergies Allergy/AdvReac Type Severity Reaction Status Date / Time iron dextran complex Allergy Severe anaphylaxic Verified 08/01/24 18:31 iron Allergy THROAT Verified 08/01/24 18:31 SWELLING Review of Systems Review of Systems Systems Reviewed: All systems reviewed, normal except as documented ED Exam Narrative Physical exam: GENERAL APPEARANCE: alert and oriented x 4, well-developed, well-nourished, no acute distress VITALS: All vitals were reviewed and the pulse ox is 100% on room air, which is normal according to my interpretation. HEENT: Normocephalic, atraumatic; pupils equal, round, reactive to light; EOMI; mucous membranes pink, moist; oropharynx clear NECK: Supple LUNGS: CTABL; no wheezes, no rales, no rhonchi HEART: Regular rate, regular rhythm; normal S1, S2; no murmurs ABDOMEN: non distended; normal BS; soft, no tenderness, no guarding, no rebound; no masses, no organomegaly, no hernia BACK: no CVA tenderness EXTREMITIES: atraumatic; no edema NEUROLOGIC: awake; alert and oriented x4; cranial nerves II-XII grossly intact; no focal sensory or motor deficits PSYCHIATRIC: appropriate mood and affect SKIN: warm, dry, normal color; no rashes Course Course Course Narrative: CXR is ordered for determining the etiology of chest pain. Quality Measures none Orders Category Date Time Status Boiler Riveter NOW Care 04/11/25 23:41 Active Continuous Pulse Oximetry NOW Care 04/11/25 23:41 Active EKG (ED ONLY) *Do not use* NOW Care 04/11/25 23:22 Completed EKG (ED Only) Stat Exams 04/11/25 23:19 Ordered XR chest 1V portable Stat Exams 04/11/25 23:19 Completed CBC [CBC] Stat Lab 04/11/25 23:35 Completed CK [Creatine Kinase] Stat Lab 04/11/25 23:35 Completed CMP [Comprehensive Metabolic Panel] Stat Lab 04/11/25 23:35 Completed Lactate (Lactic Acid) Stat Lab 04/11/25 23:35 Completed Troponin I Stat Lab 04/11/25 23:35 Completed LORazepam [Ativan Inj] Med 04/11/25 23:22 Discontinued 0.5 mg IVP X1 ONE Labetalol IV [Trandate IV] Med 04/12/25 00:55 Discontinued 20 mg IVP X1 ONE hydrALAZINE INJ [Apresoline Inj] Med 04/11/25 23:19 Discontinued 10 mg IV X1 ONE Vital Signs Vital signs: Vital Signs Temperature 98.4 F 04/11/25 22:54 Pulse Rate 84 04/11/25 22:54 Respiratory Rate 17 04/11/25 22:54 Blood Pressure 180/112 H 04/11/25 22:54 Pulse Oximetry (%) 100 04/11/25 22:54 Oxygen Delivery Method Room Air 04/11/25 22:54 Altered Mental Status MDM Narrative MDM Narrative:: Scribe Attestation: 04/11/25 - Glenna Avendano am scribing for and in the presence of Dr. Palacios. Blood pressure on ED arrival is 180/112 with a HR of 84. Hydralazine and Ativan ordered. 0053: Patient's blood pressure is 107 diastolically. Labetalol 20mg IV ordered. 0112: Patient's repeat blood pressure is 141/93 with a HR of 96. Patient is stable to be discharged home. Patient data External records reviewed:: [facility] previous records (Per chart review, patient was seen here on 03/03/25 for chest pain.) Clinical information provided by:: patient and EMS Social determinants that could affect healthcare access:: none Patient has the following chronic illnesses:: seizures, DM, HTN How is presenting disease/condition affected by chronic disease/condition?: caused by Evaluation data The following diagnostics were reviewed and interpreted by me:: lab results, radiology exam(s) and EKG tracing(s) Lab and/or radiology exams considered but not ordered:: none Interpretation Summary: CBC is normal, CMP is normal, Lactic Acid is normal, Troponin is normal, Creatinine Kinase is normal, according to my interpretation. EKG done at 2249, NSR, rate of 85, normal axis, no ectopy, no acute ischemia, according to my interpretation. --------- [facility] Report Signed Patient: HOMA HENRY. Record#: [id number] Birthdate: 1985 Age/Sex: 39 / F Location: [facility] Attending Dr: Ordering Physician: Jan Palacios MD Date of Service: 04/11/25 Procedure(s): XR chest 1V portable Accession Number(s): [id number] cc: Mahad Hartman MD; NO PRIMARY/FAMILY,PHYSICIAN; Jan Palacios MD~ Examination: AP chest single view TECHNIQUE: AP portable upright chest single view Date and time: April 11, 2025 at 11:52 PM Comparison January 19, 2025 INDICATIONS: Seizure today FINDINGS: Normal heart size No aspiration pneumonia. The osseous structures are intact IMPRESSION: Negative for aspiration pneumonia Dictated By: Mhaad Hartman MD Signed By: <Electronically signed by Mahad Hartman MD in OV> 04/12/25 0001 Medications / Prescriptions Medications or Prescriptions considered but not ordered:: none Medication administrations:: Medication Administration History Discontinued Medications Hydralazine HCl (Hydralazine Inj 20 Mg/Ml Vial) 10 mg IV X1 ONE Stop: 04/11/25 23:20 Last Admin: 04/11/25 23:42 Dose: 10 mg Documented By: CG Labetalol HCl (Labetalol Inj 5 Mg/Ml Vial 20 Ml) 20 mg IVP X1 ONE Stop: 04/12/25 00:56 Last Admin: 04/12/25 01:03 Dose: 20 mg Documented By: CG Lorazepam (Lorazepam 2 Mg/Ml Vial) 0.5 mg IVP X1 ONE Stop: 04/11/25 23:23 Last Admin: 04/11/25 23:41 Dose: 0.5 mg Documented By: CG see above Consultations Consultation(s) initiated? (list below): No Diagnosis Differential diagnosis altered mental status: other (generalized seizure, pseudoseizure, anxiety reaction, panic attack) Most likely diagnosis given after review of the tests above:: see clinical impression below Admission Indicated Admission indicated?: not indicated Admission Request Was there a request for admission?: No Disposition Plan Disposition Plan: Discharge Discharge Attestation Discharge Attestation: The patient and all family members were given an opportunity to ask questions and understood the discharge instructions. Discharge instructions specifically effects, indications for sooner follow up or return to the emergency department, and the expected course of current diagnosis. Patient condition: Stable Discharge Plan Plan Patient Disposition: HOME (Self Care) Discharge Disposition comment: Stable for discharge home Patient condition on transfer: Stable Prescriptions/Referrals Prescriptions/Med Rec: No Action amoxicillin 500 mg Capsule 500 mg PO Q8H ibuprofen 800 mg Tablet 800 mg PO Q8H PRN (Reason: Pain) hydroxyzine HCl 50 mg Tablet 50 mg PO HS ibuprofen 800 mg tablet 800 mg PO TID PRN (Reason: pain) Qty: 30 0RF acetaminophen 500 mg capsule 1,000 mg PO Q6H PRN (Reason: fever or pain) Qty: 30 0RF levetiracetam [Keppra] 500 mg tablet 500 mg PO QDAY levetiracetam [Keppra] 500 mg tablet 500 mg PO BID Qty: 60 0RF Ozempic 1 mg/dose (4 mg/3 mL) pen injector SUBCUT Patient Comments: INJECT 1MG SUBCUTANEOUS ONCE A WEEK FOR 4 WEEKS famotidine 20 mg tablet 20 mg PO BID Qty: 30 1RF ondansetron 4 mg tablet,disintegrating 4 mg PO Q8H Qty: 14 0RF Maalox Advanced 1,000-60 mg tablet,chewable 1 tab PO QID PRN (Reason: indigestion) Qty: 20 0RF ibuprofen 600 mg tablet 600 mg PO TID PRN (Reason: pain) Qty: 30 0RF naproxen 500 mg tablet 500 mg PO BID PRN (Reason: pain) Qty: 30 0RF tamsulosin [Flomax] 0.4 mg capsule 0.4 mg PO QDAY Qty: 10 0RF ibuprofen 800 mg tablet 800 mg PO TID PRN (Reason: pain) Qty: 30 0RF lisinopril 10 mg Tablet 10 mg PO QDAY benazepril 20 mg Tablet 20 mg PO QDAY ibuprofen 600 mg tablet 600 mg PO TID PRN (Reason: pain) Qty: 30 0RF albuterol sulfate [Ventolin HFA] 90 mcg/actuation HFA aerosol inhaler 2 puff inhalation Q6H PRN (Reason: shortness of breath or wheezing) Qty: 8.5 0RF amoxicillin-pot clavulanate 875-125 mg tablet 1 tab PO BID Qty: 14 0RF acetaminophen 500 mg capsule 500 mg PO Q6H PRN (Reason: pain) Qty: 30 0RF alprazolam [Xanax] 0.5 mg tablet 0.5 mg PO BID PRN (Reason: anxiety) Qty: 10 0RF cefdinir 300 mg capsule 300 mg PO BID Qty: 14 0RF Referrals: [facility] [Provider Group] - In 1 week No Primary/Family,Physician [Referring Provider] - In 1 week Problem List Clinical Impression: Anxiety reaction Patient/Caregiver Discharge Instructions Discharge Activity: activity as tolerated Education Materials: Your Body's Response to Anxiety, Understanding Anxiety Disorders, Treating Anxiety Disorders ..., ED Anxiety Reaction Additional Instructions: Please return to the emergency department if you have any worsening or any further medical problems and we will help you. Otherwise you should follow-up with your primary care doctor or in the family health care clinic within the next several days. Print Language: Nauruan Stand Alone Forms: Kristine Award Info., Patient Portal Info Letter
--- NOTE | 2025-04-11 23:19 | XR_ITS ---
Examination: AP chest single view TECHNIQUE: AP portable upright chest single view Date and time: April 11, 2025 at 11:52 PM Comparison January 19, 2025 INDICATIONS: Seizure today FINDINGS: Normal heart size No aspiration pneumonia. The osseous structures are intact IMPRESSION: Negative for aspiration pneumonia
[2025-04-11 23:23] VITALS: BP 166/112; PULSE 110; RESP 15; O2SAT 100; BMI 32.0
[2025-04-11 23:27] VITALS: BP 166/112; PULSE 85; RESP 17; TEMP 36.9; O2SAT 100
[2025-04-11] MEDS: LORazepam 2 MG/ML VIAL 0.5 MG IVP (23:41)
[2025-04-11 23:42] VITALS: BP 161/108; PULSE 88
[2025-04-11 23:42] LABS: Lactate (Lactic Acid) 1.4 mMol/L (0.4-2.0)
[2025-04-11] MEDS: hydrALAZINE INJ 20 MG/ML VIAL 10 MG IV (23:42)
[2025-04-11 23:43] LABS: Basophils % (Auto) 1 % (0-2.5); Eosinophils # (Auto) 0.3 Thou/mm3 (0.0-0.5); Eosinophils % (Auto) 5 % (0-10); Hematocrit 35.6 % (36.0-46.0); Hemoglobin 12.2 g/dL (12.0-16.0); Immature Granulocytes % (Auto) 0 % (0-0); Immature Granulocytes Auto 0.01 Thou/mm3 (0.00-0.00); Lymphocytes # (Auto) 2.3 Thou/mm3 (1.0-4.8); Lymphocytes % (Auto) 41 % (10-50); Mean Corpuscular HGB Conc 34.3 g/dl (31.0-37.0); Mean Corpuscular Hemoglobin 26.1 pg (25.0-35.0); Mean Corpuscular Volume 76 fL (80-100); Monocytes # (Auto) 0.4 Thou/mm3 (0.0-0.8); Monocytes % (Auto) 7 % (0-12); Neutrophils # (Auto) 2.6 Thou/mm3 (1.8-7.7); Neutrophils % (Auto) 47 % (37-80); Nucleated Red Blood Cell % 0 /100 WBC (0); Platelet Count 201 Thou/mm3 (140-440); RDW Standard Deviation 35.4 fL (36.4-46.3); Red Blood Count 4.68 Miln/mm3 (4.00-5.20); White Blood Count 5.5 Thou/mm3 (3.6-11.0)
[2025-04-12 00:06] LABS: Alanine Aminotransferase 23 U/L (10-49); Albumin/Globulin Ratio 1.4 (1.2-2.2); Alkaline Phosphatase 82 U/L (46-116); Anion Gap 6 (7-16); Aspartate Amino Transferase 17 U/L (0-34); BUN/Creatinine Ratio 14 Ratio (12-20); Bilirubin,Total 0.3 mg/dL (0.3-1.2); Blood Urea Nitrogen 10 mg/dL (9-23); Calcium 8.7 mg/dL (8.3-10.6); Calcium (Corrected) 8.7 mg/dL (8.5-10.1); Carbon Dioxide 28.9 mMol/L (20.0-31.0); Chloride 106 mMol/L (98-107); Creatine Kinase 91 U/L (34-171); Creatinine (Component) 0.7 mg/dL (0.6-1.3); Estimated Creatinine Clearance 106.4 mL/min (>60); Globulin 2.8 gm/dL (2.3-3.5); Glucose 178 mg/dL (74-106); Osmolality,Calculated 284 (275-295); Potassium 3.9 mMol/L (3.4-5.1); Sodium 141 mMol/L (136-145); Total Protein 6.8 gm/dL (5.7-8.2); Troponin I < 0.002 ng/mL (0.0-0.045); eGFR > 60 See Note
[2025-04-12 01:03] VITALS: BP 156/100; PULSE 108
[2025-04-12] MEDS: LABETALOL INJ 5 MG/ML VIAL 20 ML 20 MG IVP (01:03)
[2025-04-12 01:29] VITALS: BP 141/93; PULSE 104; RESP 16; O2SAT 100
== END 2025-04-12 01:30 | disposition home or self-care (01) ==
PROVIDERS: Emergency Provider Emergency Medicine; PCP Specialist
DX: F41.1 Generalized anxiety disorder (principal); E11.9 Type 2 diabetes mellitus without complications; I10 Essential (primary) hypertension; R07.9 Chest pain, unspecified
CPT/HCPCS: 36415; 71045; 80053; 82550; 83605; 84484; 85025; 93005; 96374; 99284; J0360; J2060; J3490; J1920

== ENCOUNTER 2025-08-20 22:28 | Emergency (ER) | payer MEDICAID, SELFPAY ==
[2025-08-20 22:50] VITALS: BP 142/88; PULSE 90; RESP 18; TEMP 36.9; O2SAT 97
--- NOTE | 2025-08-20 23:00 | XR_ITS ---
Examination: CT abdomen and pelvis without contrast. Coronal 3-D reconstructions. Sagittal 2-D reconstructions. Date and time of exam:August 21, 2025, 0044 hrs., Comparison June 12, 2024 Indications: Onset left flank pain today CTDI: vol (mGy): 9.01 DLP: (mGycm): 531 Technique: Axial images of the abdomen have been obtained, 3 mm slice thickness Intravenous contrast material has not been administered. Low dose protocols were performed. One or more of the following dose reduction techniques were used; automated exposure control, adjustment of the mA and/or KV according to patient size, use of iterative reconstruction technique. Findings: No visualized liver or splenic lesion Contracted gallbladder No pancreatic or adrenal mass Mild to moderate bilateral renal parenchymal scar formation 2 mm right renal calculus 3 mm left renal calculus, no hydronephrosis or ureteral calculi Normal appendix No bowel obstruction No pelvic mass No bladder mass or bladder calculi The osseous structures are intact Impression: Bilateral nonobstructing renal calculi No hydronephrosis or ureteral calculi Normal appendix No bowel obstruction diverticulitis or free air
--- NOTE | 2025-08-20 23:00 | PD.EDRME ---
Rapid Medical Screening Exam [facility] Arrival date/time: 08/20/25 22:28 40F with history of HTN and DM presents to ED with 1 day of sudden L flank pain. Patient denies dysuria. Chief Complaint: Back Pain/Injury Time Seen by Provider: 08/21/25 02:27 Vital signs: Vital Signs Temperature 98.5 F 08/20/25 22:50 Pulse Rate 90 08/20/25 22:50 Respiratory Rate 18 08/20/25 22:50 Blood Pressure 142/88 H 08/20/25 22:50 Pulse Oximetry (%) 97 08/20/25 22:50 Oxygen Delivery Method Room Air 08/20/25 22:50
[2025-08-20 23:23] LABS: Basophils # (Auto) 0.1 Thou/mm3 (0.0-0.2); Basophils % (Auto) 1 % (0-2.5); Eosinophils # (Auto) 0.2 Thou/mm3 (0.0-0.5); Eosinophils % (Auto) 3 % (0-10); Hematocrit 37.5 % (36.0-46.0); Hemoglobin 12.5 g/dL (12.0-16.0); Immature Granulocytes Auto 0.01 Thou/mm3 (0.00-0.00); Lymphocytes # (Auto) 2.5 Thou/mm3 (1.0-4.8); Lymphocytes % (Auto) 38 % (10-50); Mean Corpuscular HGB Conc 33.3 g/dl (31.0-37.0); Mean Corpuscular Hemoglobin 26.0 pg (25.0-35.0); Mean Corpuscular Volume 78 fL (80-100); Monocytes # (Auto) 0.5 Thou/mm3 (0.0-0.8); Monocytes % (Auto) 8 % (0-12); Neutrophils # (Auto) 3.2 Thou/mm3 (1.8-7.7); Neutrophils % (Auto) 49 % (37-80); Nucleated Red Blood Cell # 0.00 Thou/mm3 (0.00-0.00); Nucleated Red Blood Cell % 0 /100 WBC (0); Platelet Count 221 Thou/mm3 (140-440); RDW Standard Deviation 36.0 fL (36.4-46.3); Red Blood Count 4.80 Miln/mm3 (4.00-5.20); White Blood Count 6.4 Thou/mm3 (3.6-11.0)
[2025-08-20 23:44] LABS: Alanine Aminotransferase 32 U/L (10-49); Albumin, Serum 4.5 gm/dL (3.5-5.0); Albumin/Globulin Ratio 1.6 (1.2-2.2); Alkaline Phosphatase 91 U/L (46-116); Anion Gap 6 (7-16); Aspartate Amino Transferase 22 U/L (0-34); BUN/Creatinine Ratio 18 Ratio (12-20); Bilirubin,Total 0.3 mg/dL (0.3-1.2); Blood Urea Nitrogen 14 mg/dL (9-23); Calcium 10.0 mg/dL (8.3-10.6); Calcium (Corrected) 10.0 mg/dL (8.5-10.1); Carbon Dioxide 28.3 mMol/L (20.0-31.0); Chloride 103 mMol/L (98-107); Creatinine (Component) 0.8 mg/dL (0.6-1.3); Globulin 2.9 gm/dL (2.3-3.5); Glucose 301 mg/dL (74-106); Osmolality,Calculated 285 (275-295); Potassium 4.1 mMol/L (3.4-5.1); Sodium 137 mMol/L (136-145); Total Protein 7.4 gm/dL (5.7-8.2); eGFR > 60 See Note
[2025-08-20 23:47] LABS: Collection Type, Urine Clean Catch
[2025-08-21 00:15] LABS: Bilirubin,Urine Negative (Negative); Blood,Urine Negative (Negative); Clarity,Urine Clear (Clear/Hazy); Color,Urine Colorless (Lt Yel-Yel); Culture Indicated,Urine Not Indicated; Glucose, Urine 4+ (Negative); Ketones,Urine Negative (Negative); Leukocyte Esterase,Urine Negative (Negative); Nitrite,Urine Negative (Negative); PH,Urine 7.0 (5.0-7.0); Protein,Urine Negative (Neg - Trace); RBC,Urine 2 /hpf (0-3); Specific Gravity,Urine 1.034 (1.001-1.035); Squamous Epithelial Cell,Urine 1 /hpf (0-5); Urobilinogen,Urine Negative mg/dL (0.0-1.0); WBC,Urine < 1 /hpf (0-5)
[2025-08-21 00:23] LABS: HCG Qualitative,Urine Negative
--- NOTE | 2025-08-21 02:27 | PRELIM_ITS ---
CT scan of the abdomen and pelvis without intravenous contrast (axial sections with sagittal and coronal reformats) August 21, 2025 0044 hours Clinical History: Left flank pain Comparison: No prior study is available for comparison. Findings: The lung bases are clear. Nonobstructing bilateral renal calculi are seen, the largest measuring 1 mm in the left kidney. The liver, gallbladder, pancreas, spleen and adrenals are unremarkable on this noncontrast study. No evidence of bowel obstruction. A moderate amount of fecal material is present in the colon. The appendix is within normal limits (coronal images [id number]). There is no mesenteric or retroperitoneal adenopathy. The urinary bladder is unremarkable. The uterus and adnexa are unremarkable. There is no free fluid or free air. The osseous structures are unremarkable. Impression: No evidence of ureteric calculus or hydroureteronephrosis. Punctate nonobstructing bilateral renal calculi. Report Electronically Signed By: Jamir Hartley 08/21/2025 2:26:24 AM [EST]
--- NOTE | 2025-08-21 02:29 | PD.EDBACK ---
ED Back Injury Pain RME/HPI General Chief Complaint: Back Pain/Injury Stated Complaint: L LOW BACK PAIN Time Seen by Provider: 08/21/25 02:27 Arrival date/time: 08/20/25 22:28 40F with history of HTN and DM presents to ED with 1 day of sudden L flank pain. Patient denies dysuria. Patient adds that pain is worse with movement. Patient also denies N/V. Limitations: no limitations RME / HPI RME / HPI Narrative: 08/20/25 22:28 40F with history of HTN and DM presents to ED with 1 day of sudden L flank pain. Patient denies dysuria. Related Data Home Medications ?Medication ?Instructions ?Recorded ?Confirmed amoxicillin 500 mg capsule 500 mg PO Q8H 02/24/23 02/24/23 hydroxyzine HCl 50 mg tablet 50 mg PO HS 02/24/23 02/24/23 ibuprofen 800 mg tablet 800 mg PO Q8H PRN Pain 02/24/23 02/24/23 benazepril 20 mg tablet 20 mg PO QDAY 10/15/23 10/15/23 lisinopril 10 mg tablet 10 mg PO QDAY 10/15/23 10/15/23 levetiracetam 500 mg tablet 500 mg PO QDAY 05/09/24 05/09/24 (Keppra) semaglutide 1 mg/dose (4 mg/3 mL) mg subcut 06/12/24 subcutaneous pen injector (Ozempic) Previous Rx's ?Medication ?Instructions ?Recorded acetaminophen 500 mg capsule 1,000 mg (2 x 500 mg) PO Q6H PRN 06/05/23 fever or pain #30 caps ibuprofen 800 mg tablet 800 mg PO TID PRN pain #30 tabs 06/05/23 naproxen 500 mg tablet 500 mg PO BID PRN pain #30 tabs 08/12/23 ibuprofen 800 mg tablet 800 mg PO TID PRN pain #30 tabs 09/21/23 tamsulosin 0.4 mg capsule (Flomax) 0.4 mg PO QDAY #10 caps 09/21/23 ibuprofen 600 mg tablet 600 mg PO TID PRN pain #30 tabs 10/30/23 albuterol sulfate 90 mcg/actuation 2 puff inhalation Q6H PRN 03/10/24 aerosol inhaler (Ventolin HFA) shortness of breath or wheezing #8.5 grams amoxicillin 875 mg-potassium 1 tab PO BID #14 tabs 03/10/24 clavulanate 125 mg tablet levetiracetam 500 mg tablet 500 mg PO BID For seizure #60 tabs 05/09/24 (Keppra) calcium carbonate 1,000 1 tab PO QID PRN indigestion #20 06/23/24 mg-simethicone 60 mg chewable tabs tablet (Maalox Advanced) famotidine 20 mg tablet 20 mg PO BID #30 tabs 06/23/24 ondansetron 4 mg disintegrating 4 mg PO Q8H #14 tabs 06/23/24 tablet acetaminophen 500 mg capsule 500 mg PO Q6H PRN pain #30 caps 12/21/24 ibuprofen 600 mg tablet 600 mg PO TID PRN pain #30 tabs 01/19/25 alprazolam 0.5 mg tablet (Xanax) 0.5 mg PO BID PRN anxiety #10 tabs 03/04/25 cefdinir 300 mg capsule 300 mg PO BID #14 caps 03/04/25 Allergies Allergy/AdvReac Type Severity Reaction Status Date / Time iron dextran complex Allergy Severe anaphylaxic Verified 08/20/25 22:31 iron Allergy THROAT Verified 08/20/25 22:31 SWELLING Review of Systems Review of Systems Systems Reviewed: All systems reviewed, normal except as documented Musculoskeletal Musculoskeletal: Reports as per HPI and Reports back pain Past Medical History Past Medical History NEUROLOGIC: Positive Seizures; Negative Neurological Disorders CARDIAC: Positive Edema and Hypertension; Negative Cardiac Disorders or Congestive Heart Failure RESPIRATORY: Negative Chronic Obstructive Pulmonary Disease (COPD) or Asthma GASTROINTESTINAL: Negative Gastrointestinal Disorders GENITOURINARY: Negative Genitourinary Disorders or Renal Disease REPRODUCTIVE: Positive Previous Pregnancies MUSCULOSKELETAL: Negative Musculoskeletal Disorders or Fractures ENDOCRINE: Positive Diabetes Mellitus Type 2; Negative Diabetes Mellitus Type 1 HEMATOLOGIC: Positive Anemia PSYCHO/SOCIAL: Positive Depression and Anxiety OTHER HISTORY: Positive Hospitalization; Negative Autoimmune Disease, Blood Transfusions, Blood Transfusion Reaction or Anesthesia Reactions Family History FAMILY HISTORY: Negative Family Psychiatric Problems, Family Respiratory Disorders, Family Cardiac Disorders, Family Gastrointestinal Problems, Family Cancer, Family Surgery or Family Anesthesia Reaction Surgical History SURGICAL: Positive Section Social History SMOKING STATUS: Never smoker SECOND HAND EXPOSURE: No SUBSTANCE USE: does not use ED Exam General Limitations: Present no limitations General appearance: Present alert and in no apparent distress Head Head exam: Present atraumatic Neck Neck exam: Present normal inspection, full ROM and trachea midline Chest Chest inspection: Present normal inspection and symmetric chest wall rise Neurological Exam Neurological exam: Present alert and oriented X3 Psychiatric Psychiatric exam: Present normal affect and normal mood Skin Skin exam: Present warm, dry, intact and normal color Course Quality Measures none Orders Category Date Time Status CT abdomen pelvis wo con Stat Exams 08/20/25 23:00 Taken CBC Stat Lab 08/20/25 23:08 Completed CMP [Comprehensive Metabolic Panel] Stat Lab 08/20/25 23:08 Completed HCG Qualitative,Urine Stat Lab 08/20/25 23:38 Completed Urinalysis, C/S if Indicated Stat Lab 08/20/25 23:38 Completed Baclofen [Lioresal] Med 08/21/25 02:27 Discontinued 10 mg PO X1 ONE Ketorolac Inj [Toradol Inj] Med 08/21/25 02:27 Discontinued 60 mg IM X1 ONE Vital Signs Vital signs: Vital Signs Temperature 98.5 F 08/20/25 22:50 Pulse Rate 90 08/20/25 22:50 Respiratory Rate 18 08/20/25 22:50 Blood Pressure 142/88 H 08/20/25 22:50 Pulse Oximetry (%) 97 08/20/25 22:50 Oxygen Delivery Method Room Air 08/20/25 22:50 O2 at 97% on RA and WNLs Back Pain / Injury MDM Narrative MDM Narrative:: 40F with history of HTN and DM presents to ED with 1 day of sudden L flank pain. Patient denies dysuria. Patient adds that pain is worse with movement. Patient also denies N/V. Physical exam reveals uncomfortable female. Patient is afebrile, calm, and alert. Telerad CT unremarkable. No leukocytosis. CMP unremarkable. HCG neg. UA only glucose. No blood or UTI. Likely MSK-in nature. Patient eloped. Patient data External records reviewed:: [facility] previous records Clinical information provided by:: patient Social determinants that could affect healthcare access:: none Patient has the following chronic illnesses:: DM How is presenting disease/condition affected by chronic disease/condition?: uneffected by Evaluation data The following diagnostics were reviewed and interpreted by me:: lab results and radiology exam(s) Lab and/or radiology exams considered but not ordered:: ordered Interpretation Summary: above Medications / Prescriptions Medications or Prescriptions considered but not ordered:: ordered Medication administrations:: Medication Administration History Discontinued Medications Baclofen (Baclofen 10 Mg Tablet) 10 mg PO X1 ONE Stop: 08/21/25 02:28 Ketorolac Tromethamine (Ketorolac Inj 60 Mg/2 Ml Vial) 60 mg IM X1 ONE Stop: 08/21/25 02:28 above Consultations Consultation(s) initiated? (list below): No Diagnosis Differential diagnosis back pain/injury: lumbar radiculopathy, sciatica, strain of lumbar region, renal colic, pyelonephritis, thoracic back pain, AAA and discitis Most likely diagnosis given after review of the tests above:: back pain Admission Indicated Admission indicated?: not indicated Admission Request Was there a request for admission?: No Disposition Plan Disposition Plan: other (specify) (eloped) Discharge Plan Plan Patient Disposition: Elopement Prescriptions/Referrals Prescriptions/Med Rec: No Action amoxicillin 500 mg Capsule 500 mg PO Q8H ibuprofen 800 mg Tablet 800 mg PO Q8H PRN (Reason: Pain) hydroxyzine HCl 50 mg Tablet 50 mg PO HS ibuprofen 800 mg tablet 800 mg PO TID PRN (Reason: pain) Qty: 30 0RF acetaminophen 500 mg capsule 1,000 mg PO Q6H PRN (Reason: fever or pain) Qty: 30 0RF levetiracetam [Keppra] 500 mg tablet 500 mg PO QDAY levetiracetam [Keppra] 500 mg tablet 500 mg PO BID Qty: 60 0RF Ozempic 1 mg/dose (4 mg/3 mL) pen injector SUBCUT Patient Comments: INJECT 1MG SUBCUTANEOUS ONCE A WEEK FOR 4 WEEKS famotidine 20 mg tablet 20 mg PO BID Qty: 30 1RF ondansetron 4 mg tablet,disintegrating 4 mg PO Q8H Qty: 14 0RF Maalox Advanced 1,000-60 mg tablet,chewable 1 tab PO QID PRN (Reason: indigestion) Qty: 20 0RF ibuprofen 600 mg tablet 600 mg PO TID PRN (Reason: pain) Qty: 30 0RF naproxen 500 mg tablet 500 mg PO BID PRN (Reason: pain) Qty: 30 0RF tamsulosin [Flomax] 0.4 mg capsule 0.4 mg PO QDAY Qty: 10 0RF ibuprofen 800 mg tablet 800 mg PO TID PRN (Reason: pain) Qty: 30 0RF lisinopril 10 mg Tablet 10 mg PO QDAY benazepril 20 mg Tablet 20 mg PO QDAY ibuprofen 600 mg tablet 600 mg PO TID PRN (Reason: pain) Qty: 30 0RF albuterol sulfate [Ventolin HFA] 90 mcg/actuation HFA aerosol inhaler 2 puff inhalation Q6H PRN (Reason: shortness of breath or wheezing) Qty: 8.5 0RF amoxicillin-pot clavulanate 875-125 mg tablet 1 tab PO BID Qty: 14 0RF acetaminophen 500 mg capsule 500 mg PO Q6H PRN (Reason: pain) Qty: 30 0RF alprazolam [Xanax] 0.5 mg tablet 0.5 mg PO BID PRN (Reason: anxiety) Qty: 10 0RF cefdinir 300 mg capsule 300 mg PO BID Qty: 14 0RF Problem List Clinical Impression: Back pain Patient/Caregiver Discharge Instructions Education Materials: ED Back Pain (Acute or Chronic) Additional Instructions: Please follow-up with PCP within 24-48 hours and return immediately if symptoms worsen. If problem persists, recommend outpatient PT and/or MRI follow-up. In the meantime, rest, use ice/heat, and/or compression. NSAIDs like ibuprofen tend to work better for this type of pain. Print Language: English Stand Alone Forms: Patient Portal Info Letter NEAL/JAYSON Supervising Physician NEAL/JAYSON Supervising Physician: Dr. Richards
--- NOTE | 2025-08-21 02:45 | PC.NURSE ---
UNABLE TO LOCATE PT. CALLED FOR HER IN THE LOBBY AND IN FRONT OF ER. 34 TIMES WITHING THE LAST 30 MIN.
== END 2025-08-21 03:10 | disposition left against medical advice (07) ==
LOC: SERX 08-21 03:24
PROVIDERS: Physician Assistant; Emergency Provider Emergency Medicine
DX: M54.50 Low back pain, unspecified (principal); R10.9 Unspecified abdominal pain
CPT/HCPCS: 36415; 74176; 80053; 81001; 81025; 85025; 99284

== ENCOUNTER 2025-09-08 21:56 | Emergency (ER) | payer MEDICAID, SELFPAY ==
[2025-09-08 22:01] VITALS: BP 172/121; BP 174/111; PULSE 101; RESP 18; TEMP 36.3; O2SAT 99
[2025-09-08 22:13] VITALS: PULSE 107; O2SAT 99
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
[2025-09-08 22:49] VITALS: BP 155/113; PULSE 90; RESP 20; O2SAT 99
[2025-09-08 23:03] LABS: Basophils # (Auto) 0.0 Thou/mm3 (0.0-0.2); Basophils % (Auto) 1 % (0-2.5); Eosinophils # (Auto) 0.2 Thou/mm3 (0.0-0.5); Eosinophils % (Auto) 4 % (0-10); Hematocrit 39.2 % (36.0-46.0); Hemoglobin 12.8 g/dL (12.0-16.0); Immature Granulocytes Auto 0.02 Thou/mm3 (0.00-0.00); Lymphocytes # (Auto) 1.7 Thou/mm3 (1.0-4.8); Lymphocytes % (Auto) 30 % (10-50); Mean Corpuscular HGB Conc 32.7 g/dl (31.0-37.0); Mean Corpuscular Hemoglobin 25.2 pg (25.0-35.0); Mean Corpuscular Volume 77 fL (80-100); Monocytes # (Auto) 0.4 Thou/mm3 (0.0-0.8); Monocytes % (Auto) 7 % (0-12); Neutrophils # (Auto) 3.2 Thou/mm3 (1.8-7.7); Neutrophils % (Auto) 59 % (37-80); Nucleated Red Blood Cell # 0.00 Thou/mm3 (0.00-0.00); Nucleated Red Blood Cell % 0 /100 WBC (0); Platelet Count 224 Thou/mm3 (140-440); RDW Standard Deviation 35.1 fL (36.4-46.3); Red Blood Count 5.07 Miln/mm3 (4.00-5.20); White Blood Count 5.5 Thou/mm3 (3.6-11.0)
[2025-09-08] MEDS: MORPHINE SULF INJ 4 MG/ML VIAL IVP (23:13)
[2025-09-08] MEDS: ONDANSETRON INJ 2 MG/ML INJ 2 ML 4 MG IVP (23:13)
[2025-09-08 23:37] LABS: HCG,Qualitative Serum Negative
[2025-09-08 23:45] LABS: Alanine Aminotransferase 29 U/L (10-49); Albumin, Serum 4.3 gm/dL (3.5-5.0); Albumin/Globulin Ratio 1.5 (1.2-2.2); Alkaline Phosphatase 93 U/L (46-116); Anion Gap 9 (7-16); Aspartate Amino Transferase 22 U/L (0-34); BUN/Creatinine Ratio 11 Ratio (12-20); Bilirubin,Total 0.3 mg/dL (0.3-1.2); Blood Urea Nitrogen 8 mg/dL (9-23); Calcium 9.0 mg/dL (8.3-10.6); Calcium (Corrected) 9.0 mg/dL (8.5-10.1); Carbon Dioxide 25.9 mMol/L (20.0-31.0); Chloride 102 mMol/L (98-107); Creatinine (Component) 0.7 mg/dL (0.6-1.3); Globulin 2.8 gm/dL (2.3-3.5); Glucose 322 mg/dL (74-106); Osmolality,Calculated 284 (275-295); Potassium 4.3 mMol/L (3.4-5.1); Sodium 137 mMol/L (136-145); Total Protein 7.1 gm/dL (5.7-8.2); eGFR > 60 See Note
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
[2025-09-09] MEDS: SODIUM CHLORIDE 0.9% 1000 ML 1,000 ML 999 ML IV (00:37)
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
[2025-09-09 01:45] VITALS: BP 155/106; PULSE 92; RESP 14; O2SAT 100
[2025-09-09 02:00] VITALS: BP 151/95; PULSE 85; RESP 17; O2SAT 99
[2025-09-09 02:15] VITALS: BP 143/99; PULSE 83; RESP 13; O2SAT 100
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
[2025-09-09 02:30] VITALS: BP 143/97; PULSE 81; RESP 15; O2SAT 96
[2025-09-09 02:40] VITALS: BP 143/97; PULSE 82; RESP 18; TEMP 36.2; O2SAT 96
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
== END 2025-09-09 03:44 | disposition home or self-care (01) ==
PROVIDERS: Physician Assistant; Emergency Provider Emergency Medicine; PCP Specialist
DX: M54.2 Cervicalgia (principal); V43.52XA Car driver injured in collision with other type car in traffic accident, initial encounter; Y92.410 Unspecified street and highway as the place of occurrence of the external cause; E11.9 Type 2 diabetes mellitus without complications; F41.9 Anxiety disorder, unspecified
CPT/HCPCS: 36415; 70450; 71045; 71275; 72125; 74174; 80053; 84703; 85025; 96361; 96374; 96375; 99283; A4649; J2270; J2405; J7030; Q9967